=== PATIENT | male | born 1965 | race Caucasian/White ===

== ENCOUNTER 2020-06-01 17:41 | Emergency (ER) | payer OTHER ==
[~2020-06-01] VITALS: Ht 193 cm; Wt 117.9 kg
[2020-06-01] MEDS ORDERED: KETOROLAC TROMETHAMINE 30 MG/ML VIAL IM STA (17:56)
[2020-06-01] MEDS ORDERED: HYDROCODONE/APAP 5MG-325MG TAB PO ONE (18:00)
--- NOTE | 2020-06-01 18:57 | Diagnostic Imaging Report ---
X-ray site and # of views HISTORY: Pelvic pain. COMPARISON: None available. FINDINGS: Bones/joints: No acute fracture or dislocation. There are mild degenerative changes of the bilateral hip joints. The sacroiliac joints are symmetric. No pubic symphyseal widening. Soft tissues: No focal soft tissue abnormality. IMPRESSION: 1. No acute osseous or soft tissue abnormality. 2. Mild degenerative changes of the bilateral hips. Signed by: Jennifer Rizo MD on 06/01/2020 6:54 PM
--- NOTE | 2020-06-01 19:00 | Diagnostic Imaging Report ---
X-ray number spine HISTORY: Lumbosacral spine pain. COMPARISON: None available. FINDINGS: ALIGNMENT: Normal. Vertebral bodies: normal height. Intervertebral disc spaces: there is multilevel degenerative disc disease most pronounced at L5-S1 level. Facet: There is multilevel facet arthrosis most pronounced at the lower lumbar spine. Others: The sacroiliac joints are symmetric. Soft tissues: normal. IMPRESSION: Lumbar spondylosis with multilevel degenerative disease. No acute fracture or dislocation of the lumbosacral spine. Signed by: Jennifer Rizo MD on 06/01/2020 6:57 PM
--- OUTSIDE RECORDS SUMMARY | 2020-06-03 20:23 | XMS REPORT | Summary of Care ---
Author Author [facility] Organization [facility] Address Unknown Phone Unavailable Encounter [facility]([place]UL[place]) [id number] Date(s): 05/15/19 - 05/15/[address] [phone] Discharge Disposition: Home or Self Care Attending Physician: Vinnie Soto MD Referring Physician: Vinnie Soto MD Vital Signs No data available for this section Problem List Condition Effective Dates Status Health Status Informan t Anxiety(Confirmed) Resolved Chronic back Resolved pain(Confirmed) Depression(Confirmed Resolved ) Epilepsy(Confirmed) Resolved Allergies, Adverse Reactions, Alerts No Known Medication Allergies Medications No data available for this section Results No data available for this section Immunizations No data available for this section Procedures Procedure Date Related Diagnosis Body Site Status Ambulatory EEG Completed Gastric bypass Completed MRI of head Completed Social History Social History Type Response Smoking Status Never smoker; Exposure to T obacco Smoke None; Cigarette Smoking Last 365 Days No; Reg Smoking Cessation Counseli ng No entered on: 02/27/19 Assessment and Plan No data available for this section
--- OUTSIDE RECORDS SUMMARY | 2020-06-03 20:23 | XMS REPORT | Continuity of Care Document ---
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 Active 05/11/[address] [facility] R56.9 Active 02/13/[address] [facility] S86.911A - STRAIN OF UNSP MUSC/TEND AT L Active 07/12/2016 [facility] Anxiety (finding) Resolved Problem 05/17/[address] [facility] Chronic back pain (disorder) R esolved Problem [facility] Depressive disorder (disorder) Resolved Problem [facility] Epilepsy (disorder) Resolved Problem 05/17/[address] [facility] Postgastrectomy Malabsorption Active 12/23/2013 [facility] Vitamin D Deficiency Active 12/23/2013 [facility] Hypertension Active 12/23/2013 [facility] Recurrent Nonepileptic Seizures Active 12/23/2013 [facility] Anxiety (Symptom) Active 12/23/2013 [facility] Medications Medication Details Route Status Patient Instructions Ordering Provider Order Date Source Levetiracetam 750 MG Oral Tablet 750 mg = 1 tab, PO, Q12H, # 120 tab, 2 Refill(s), Pharmacy: [facility] #[id number] Active 03/01/[address] [facility] 24 HR topiramate 200 MG Extended Release Oral Capsule [Qudexy] 400 mg = 2 cap, PO, QAM, # 60 cap, 2 Ref ill(s), Pharmacy: [facility] #[id number] Active 03/01/[address] [facility] Topiramate 150mg CAPSULE ER No paresh: atient No Longer Active 03/01/[address] [facility] topiramate 150 mg, Route: PO, Drug form: ERCAP, Bedtime, Dosing Weight 118.182, kg, Start date: 02/28/19 21:00:00 CDT, Duration: 30 day, Stop date: 03/29/19 21:00:00 CDT Inactive 03/01/2019 [facility] nter Keppra Notes: Same as Keppra No Longer Active 02/28/[address] [facility] topiramate 600 mg, Route: PO, Drug form: ERCAP, QAM, Dosing Weight 118.182, kg, Start date: 02/28/19 9:00:00 CDT, Duration: 30 day, Stop date: 03/29/19 9:00:00 CDT No Longer Active 02/28/2019 [facility] Ce [facility]ter Escitalopram Notes: (Same as: Lexapro) No Longer Active 02/28/[address] [facility] topiramate 200mg ER cap topira mate 200mg ER cap, 600 mg, 3 cap, Drug form: MISC, Route: PO, Daily, 02/28/19 9:00:00 CDT, Duration: 30 day, Stop date: 03/29/19 9:00:00 CDT No Longer Active 02/28/2019 [facility] nter Ativan 2 mg, Route: IVP, Drug form: INJ, ONCE, Dosing Weight 118.182, kg, PRN Anxiety, Start date: 02/28/19 4:52:00 CDT Inactive 02/28/[address] [facility] topiramate 150 mg, Route: PO, Drug form: ERCAP, Bedtime, Dosing Weight 118.182, kg, Start date: 02/27/19 21:00:00 CDT, Duration: 30 day, Stop date: 03/28/19 21:00:00 CDT Inactive 02/28/2019 [facility] nter Saline Flush 0.9% Notes: Same as: BD Posiflush Sterile No Longer Active 02/28/[address] [facility] zolpidem 10 mg, Route: PO, Shawn g form: TAB, Bedtime, Dosing Weight 118.182, kg, PRN Sleep, Start date: 02/27/19 10:40:00 CDT, Duration: 30 day, Stop date: 03/29/19 10:39:00 CDT Inactive 02/27/[address] [facility] 24 HR topiramate 150 MG Extended Release Oral Capsule [Qudexy] 150 mg = 1 cap, PO, Bedtime, 0 Refill(s) No Longer Active 02/27/[address] [facility] 24 HR topiramate 200 MG Extended Release Oral Capsule [Qudexy] 600 mg = 3 cap, PO, QAM, 0 Refill(s) No Longer Active 02/27/[address] [facility] Saline Flush 0.9% Notes: Same as: BD Posiflush Sterile No Longer Active 02/27/[address] [facility] topiramate 600 mg, PO, Daily, 0 Refill(s) Inactive 02/27/[address] [facility] Escitalopram 10 mg, PO, Daily, 0 Refill(s) Inactive 02/27/[address] [facility] zolpidem 5 mg, PO, Bedtime, 0 Refill(s) Inactive 02/27/[address] [facility] 24 HR topiramate 150 MG Extended Release Oral Capsule [Qudexy] 150 mg = 1 cap, PO, Daily, 0 Refill(s) Inactive 02/27/2019 [facility] nt 24 HR topiramate 200 MG Extended Release Oral Capsule [Qudexy] 600 mg = 3 cap, PO, Daily, 0 Refill(s) Inactive 02/27/2019 [facility] nt escitalopram 10 mg oral tablet 10 mg = 1 tab, PO, Daily, # 30 tab, 0 Refill(s) Active 02/27/[address] [facility] zolpidem 10 mg oral tablet 10 mg = 1 tab, PO, Bedtime, PRN for sleep, # 14 tab, 0 Refill(s) Active 02/27/2019 [facility] nt Escitalopram Oxalate 10 MG Oral Tablet ; Start Date: ; End Date: (Active) Inactive [facility] Topamax 100 MG Oral Tablet (A ctive) Active [facility] Allergies, Adverse Reactions, Alerts Substance Category Reaction Severity Reaction type Status Date Reported Comments Source No Known Medication Allergies Assertion Drug aller gy [facility] No Known Drug Allergies drug a llergy drug aller gy Active [facility] Immunizations No Data Provided for This Section Results Order Name Results Value Reference Range Date Interpretation Comments Source CHEM PANEL B/C Ratio 12 6 - 25 02/27/[address] [facility] CHEM PANEL AGAP 11.5 10.0 - 20.0 02/27/[address] [facility] CHEM PANEL Globulin 2.7 2.7 - 4.2 02/27/[address] [facility] CHEM PANEL A/G Ratio 1.3 0.7 - 1.6 02/27/[address] [facility] CHEM PANEL eGFR 86 02/27/2019 Result Comment: The eGFR is calculated using the CKD-EPI formula. In most young, healthy individuals the eGFR will be >90 mL/min/1.73m2. The eGFR declines with age. An eGFR of 60-89 may be normal in some populations, particularly the elderly, for whom the CKD-EPI formula has not been extensively validated. Use of the eGFR is not recommended in the following populations:

Individuals with unstable creatinine concentrations, including patients and those with serious co-morbid conditions.

Patients with extremes in muscle mass or diet.

The data above are obtained from the National Kidney Disease Education Program (NKDEP) which additionally recommends that when the eGFR is used in patients with extremes of body mass index for purposes of drug dosing, the eGFR should be multiplied by the estimated BMI. [facility] CHEM PANEL ALT 13 0 - 65 02/27/[address] [facility] CHEM PANEL Total Protein 6.3 6.4 - 8.4 02/27/[address] [facility] CHEM PANEL Albumin Lvl 3.6 3.5 - 5.0 02/27/[address] [facility] CHEM PANEL AST 21 0 - 37 02/27/[address] [facility] CHEM PANEL Calcium Lvl 8.5 8.5 - 10.5 02/27/[address] [facility] CHEM PANEL Alk Phos 96 39 - 136 02/27/[address] [facility] CHEM PANEL Bili Total 0.3 0.2 - 1.3 02/27/[address] [facility] CHEM PANEL BUN 12 7 - 22 02/27/[address] [facility] CHEM PANEL Creatinine Lvl 1.00 0.50 - 1.40 02/27/[address] [facility] CHEM PANEL Potassium Lvl 3.5 3.5 - 5.1 02/27/[address] [facility] CHEM PANEL Sodium Lvl 143 135 - 145 02/27/[address] [facility] CHEM PANEL Chloride Lvl 113 95 - 109 02/27/[address] [facility] CHEM PANEL CO2 22 24 - 32 02/27/[address] [facility] CHEM PANEL Glucose Lvl 122 70 - 99 02/27/[address] [facility] HEMATOLOGY RBC 4.23 4.70 - 6.10 02/27/[address] [facility] HEMATOLOGY Hgb 13.5 14.0 - 18.0 02/27/[address] [facility] HEMATOLOGY Hct 38.5 42.0 - 54.0 02/27/[address] [facility] HEMATOLOGY WBC 3.2 3.7 - 10.4 02/27/[address] [facility] HEMATOLOGY Platelet 172 133 - 450 02/27/[address] [facility] HEMATOLOGY MPV 8.2 7.4 - 10.4 02/27/[address] [facility] HEMATOLOGY MCV 91.0 80.0 - 94.0 02/27/[address] [facility] HEMATOLOGY MCH 32.0 27.0 - 31.0 02/27/[address] [facility] HEMATOLOGY MCHC 35.1 32.0 - 36.0 02/27/[address] [facility] HEMATOLOGY RDW 13.0 11.5 - 14.5 02/27/[address] [facility] HEMATOLOGY Neutrophils # 1.3 1.5 - 8.1 02/27/[address] [facility] HEMATOLOGY Basophils 0.5 0.0 - 1.0 02/27/[address] [facility] HEMATOLOGY Segs 41.8 45.0 - 75.0 02/27/[address] [facility] HEMATOLOGY Eosinophils 1.8 0.0 - 4.0 02/27/[address] [facility] HEMATOLOGY Monocytes 10.4 2.0 - 12.0 02/27/[address] [facility] HEMATOLOGY Lymphocytes 45.5 20.0 - 40.0 02/27/[address] [facility] HEMATOLOGY Eosinophils # 0.1 0.0 - 0.5 02/27/[address] [facility] HEMATOLOGY Monocytes # 0.3 0.0 - 0.8 02/27/[address] [facility] HEMATOLOGY Lymphocytes # 1.5 1.0 - 5.5 02/27/[address] [facility] TOXICOLOGY Topiramate Lvl 15.3 2.0 - 25.0 02/27/2019 Result Comment: This test was developed and its performance characteristics
determined by [employer]. It has not been cleared or
approved by the Food and Drug Administration.
Detection Limit = 1.0
Performed At: [facility]
[address], [place] [id number]
Padilla Mcgrath MD Ph:[phone] [facility] Pathology Reports No Data Provided for This Section Diagnostic Reports Report Value Date Source PET CT Brain refractory seizures EXAM: NM PET CT Head DATE: 05/15/2019 15:05 CDT INDICATION: complex partial epilepsy without status epilepticus, partial symtomatic epilepsy with complex partial seizures, intractable, without status. COMPARISON: Brain MRI 03/01/2019 TECHNIQUE: After intravenous administration of 15.68 mCi of F-18 FDG, 30 minutes delayed PET-noncontrast CT scan of the head was obtained. FINDINGS: There is diffusely heterogenous radiotracer uptake throughout the brain parenchyma. No focal unilateral areas of decreased activity identified suggest seizure focus. Overall decreased uptake in the bilateral anterior temporal lobes and, to a lesser degree, the superior parietal lobes. The CT part of the study shows age-appropriate diffuse cerebral volume loss. No acute intracranial abnormality identified. IMPRESSION: Nonspecific diffuse heterogeneous radiotracer uptake without focal abnormality to suggest seizure focus. 05/15/[address] [facility] Brain wo contrast MRI EXAM: MR I BRAIN WITHOUT CONTRAST DATE: 03/01/2019 12:29 PM CDT INDICATION: - Left Frontal Lobe Epilespy COMPARISON: TECHNIQUE: Multiplanar, mutisequence MRI of the brain without contrast. IV contrast: None FINDINGS: Punctate FLAIR hyperintensities are seen in the deep white matter of the frontal lobes and the left insula, which may represent chronic microvascular ischemic changes. The sulci and the ventricles are normal for the patient's age. No restricted diffusion is present. No intracranial hemorrhage is identified. No parenchymal abnormalities are seen. The midline is not deviated. No evidence of herniations. The intracranial arterial and venous structures demonstrate normal flow voids. The visible paranasal sinuses and skull base are unremarkable. IMPRESSION: Normal MRI of the brain without contrast. 03/01/[address] [facility] Spine lumbar wo contrast MRI E XAM: MRI LUMBAR SPINE WITHOUT CONTRAST DATE: 12/22/2016 9:30 AM [facility] [employer] . TECHNIQUE: Multiplanar, multisequence MRI lumbar spine without IV contrast COMPARISON: Unavailable FINDINGS: For the purposes of enumeration, the lowest well formed intervertebral disc was counted as L5-S1 on this exam. INTRASPINAL CONTENTS/CONUS: The conus terminates at L1-L2. No definite dural based lesion. VERTEBRAE: The vertebrae are normal in height and alignment. No focal suspicious bone marrow signal abnormality. PARASPINAL SOFT TISSUES: No edema or definite masses. No aortic aneurysm. Disc spaces, spinal canal, and neural foramina: T12-L1. Intervertebral disc height and signal are maintained. Posterior elements are normal. There is no stenosis. L1-L2. Intervertebral disc height and signal are maintained. Posterior elements are normal. There is no stenosis. L2-L3. Intervertebral disc height and signal are maintained. Posterior elements are normal. There is no stenosis. L3-L4. Intervertebral disc height and signal are maintained. Posterior elements are normal. There is no stenosis. L4-L5. Intervertebral disc height and signal are maintained. Posterior elements are normal. There is no stenosis. L5-S1. Loss of intervertebral disc height and signal with diffuse disc bulge and central zone annular fissuring. Facets are mildly enlarged.. Central canal measures 11 mm. Lateral recesses are patent. There is moderate severe narrowing of the neural foramina, right greater than left with foraminal disc bulge causing mass effect on exiting nerve roots IMPRESSION: 1. Moderate to severe bilateral L5-S1 ne ural foramen narrowing, right greater than left 2. No lumbar central canal stenosis 12/22/2016 [facility] Lumbar Comp w Bend views DX EXAM: XR LUMBAR SPINE 7 VIEWS DATE: 12/10/2016 at 1311 hours INDICATION: M54.42 Lumbago with sciatica, left side COMPARISON: None available TECHNIQUE: AP, lateral, coned lateral, LPO, RPO, flexion, extension views of the lumbar spine FINDINGS: 5 nonrib bearing, lumbar-type vertebral bodies are present. Vertebral body heights and disk heights are preserved. Bilateral L5 pars defects are present with grade 1 anterolisthesis of L5 on S1, which is unchanged through flexion and extension. There is no abnormal motion upon flexion or extension. Mild lower lumbar spine facet hypertrophy is present. No soft tissue abnormality is identified. IMPRESSION: Bilateral L5 pars defects with fixed, minimal, grade 1 anterolisthesis of L5 on S1. 12/10/2016 [facility] Hip 2/3 views uni DX EXAM: X-r ay right hip 2 views DATE: 07/12/2016 11:31 AM CDT INDICATION: S86.911A Strain of unspecified muscle(s) and tendon(s) at lower leg level, right leg, initial encounter ADDITIONAL INFORMATION: None. COMPARISON: None TECHNIQUE: AP and attempted frog lateral views FINDINGS: Visualized bony and joint structures are intact no evidence of fracture or dislocation. Overlying soft tissues appear unremarkable. IMPRESSION: 1. Unremarkable] right hip. 07/12/2016 [facility] Consultation Notes No Data Provided for This Section Discharge Summaries No Data Provided for This Section History and Physicals No Data Provided for This Section Vital Signs Vital Sign Value Date Comments Source Temperature Oral (F) 97.3 F 03/01/[address] [facility] Respitory Rate 16 03/01/[address] [facility] Systolic (mm Hg) 122 03/01/[address] [facility] Diastolic (mm Hg) 74 03/01/[address] [facility] Heart Rate 60 03/01/[address] [facility] Respitory Rate 18 03/01/[address] [facility] Heart Rate 61 03/01/[address] [facility] Temperature Oral (F) 98.1 F 03/01/[address] [facility] Systolic (mm Hg) 116 03/01/[address] [facility] Diastolic (mm Hg) 65 03/01/[address] [facility] Respitory Rate 17 02/28/[address] [facility] Heart Rate 63 02/28/[address] [facility] Systolic (mm Hg) 137 02/28/[address] [facility] Diastolic (mm Hg) 80 02/28/[address] [facility] Temperature Oral (F) 97.1 F 02/28/[address] [facility] Height 193.04 cm 02/27/[address] [facility] BMI Calculated 31.71 02/27/[address] [facility] Weight 118.182 02/27/[address] [facility] Encounters Location Location Details Encounter Type Encounter Number Reason For Visit Attending Provider ADM Date DC Date Status Source AUDIT [id number] 12/18/2013 12/18/2013 [facility] AUDIT [id number] 12/22/2013 12/22/2013 [facility] AUDIT [id number] 12/23/2013 12/23/2013 [facility] [id number] 00 Corinne Peng 07/12/2016 07/13/2016 [facility] [id number] 01 Corinne Peng 12/10/2016 12/11/2016 [facility] [place] [facility] [id number] Corinne Peng 12/22/2016 [facility]23[facility] [id number] Vinnie Soto 02/27/2019 03/01/2019 [facility] Outpatient [id number] paulette Soto 05/15/2019 05/16/[address] [facility] Procedures Procedure Code Date Perfomer Comments Source Ambulatory EEG [id number] [facility] Gastric bypass [id number] [facility] MRI of head [id number] [facility] Assessment and Plan Assessment and Plan Date Source Extracted from:Title: EMU Author: Laura Escobar MD Date: 02/28/19 EMU Progress Note Had overnight seizures that occurred in clusters. Was given Ativan 2 mg. Slept after. No further seizures so far. Medications: Topamax 600 mg XR given this am Vitals Stable Physical Exam: APPEARANCE - Active, alert, well developed, well nourished. HEAD - dressing NECK - Supple, LUNGS - Clear to auscultation CV - RRR, no murmur, equal pulses bilaterally. ABDOMEN - Soft, nontender, NEURO: II-XII intact, DTRs 2/2, 5/5 strength, Normal station, No ataxia, plantar reflexes downgoing. Assessment: VEEG monitoring Day # 2. 53 y/o with h/o epilepsy admitted for phase 1 evaluation. 4 seizures overnight. Work up left frontal lobe epilepsy. Plan: -Continuous vEEG monitoring - AED regimen to be modified, decrease T PM to 600 mg XR ( 400 / 200 ) and start Keppra 750 mg bid - Plan for d/c in am after MRI, if patie nt has no further seizures. - The VEEG findings and AED management w as discussed with patient and at bedside at length Patient was counseled regarding AED management. EEG Review Interictals: Left frontal ( F3) Ictal: Clinical - Vocalization--> Body and head turn to the right --> Right face clonic sz EEG - Left frontal I spent 40 minutes face time, > 50% of the time was spent in counseling and coordination of care. Extracted from:Title: EMU Admission H&P Author: Aly Jacobs MD Date: 02/27/19 EMU History and Physical Patient Name:HIEU ATKINS Date of Birth1965 00:00 Referrring Physician: Vinnie Soto MD Admitting Physician: Laura Escobar MD Chief Complaint: Phase I Diagnostic Evaluation for seizures HPI: Mr. Hieu Atkins is a 53 year old male with a history of epilepsy, gastric bypass surgery, chronic back pain, depression, and anxiety who presents to for epilepsy evaluation. Mr. Atkins reports that he began having seizures in 2002. He reports that while sitting at his computer, he suddenly blacked out, and woke up on the floor. He is unaware if he had any convulsions, or how long he was unconscious. (This is the only time he went to ER). Since then, he reports that he has been having episodes of blank staring during which he is unable to verbally communicate. He and his also report that he has also been having episodes that involve him stuttering, hyperventilating, and locking his jaw. His denies any convulsions or falls, and reports that these episodes tend to last for about one minute. His recovery time can be anywhere from about 20 minutes to an hour. Semiology 1 Aura: Weird feeling, "feeling something wrong". No motor or sensory feeling prior to seizures. Only a indescribable "feeling" Ictus: Incoherent noise, jaw locks open, hardtime breathing, lasts for about a min. Preserved awareness. Cannot talk, but can walk around and perform meaningful tasks. Post-Ictus: Feels nausea/fatigue/cannot talk for an hour. The post-ictal duration has increased from 20 min to up to an hour now. Frequency: "a few times a week" Triggers: Fatigue, physical exertion Semiology 2 Aura: No aura Ictus: Whole body stiffneing, preserved awareness, unable to verbalize Post-Ictus: Frustrations lasting a few min to up to an hour Frequency: " Once or twice a month" Triggers: None His most recent bigger episode was in October 2018. He has the staring spells which are milder without stiffness or vocalization weekly. He is completely aware of all of his seizure episodes. In regards to previous evaluations, he had a 72 hour at home EEG about one month ago, that was unremarkable. He notes that the day after the conclusion of his study, he had a seizure. He has also had both an EEG and MRI of the brain at the time of his initial diagnosis. Both studies were unremarkable. The only AED that he has tried is Topamax, which he is currently taking. In regards to side effects, he has been experiencing some issues with cognition. Mr. Atkins denies a childhood history of seizures, brain injuries, or meningitis. He also denies a family history of seizures. Last on year, has bene having once a month. He was on to topamax and dilantin for a long time.. Discontinued dilantin 10 years ago. 600mg AM 150 at HS Previous AED: Dilantin -Discontinued 10 years ago. Review of Systems: GEN: Alert and oriented x 3. No fever, chills, night sweats, weight loss, fatigue EYES: no blurred vision, double vision, eye pain ENT: no decreased hearing, nose bleeding, nasal congestion, sore throat CARDIO: no chest pain, palpitation, orthopnea, PND, palpitations, dyspnea on exertion, edema, claudication, phlebitis PULM: no shortness of breath, cough, wheezing, asthma, sputum, hemoptysis GI: no nausea, vomiting, diarrhea, constipation, heartburn, Ab pain, Reflux, BRBPR, Melna : no frequency, dysuria, burning, hematuria, nocturia, hesitancy, erectile dysfunction, NEURO: see HPI, + Memory problems ENDO: no wt loss, wt gain, heat intolerance, cold intolerance, diabetes SKIN: rash, lesion, itching MUSC: joint pain, muscle pain, arthritis, back pain Current AEDS/Meds: topiramate([id number],extendedrelease) 1capBYMOUTHDaily. topiramate([id number],extendedrelease) 3capBYMOUTHDaily. Other Medications: escitalopram([id number]) 1tab(s)BYMOUTHDaily. zolpidem([id number]) 1tab(s)[id number]. PMH: Epilepsy Chronic back pain Depression Anxiety Developmental history: Normal Births, PSH: Gastric bypass FH: No family hx of seizures Social: [employer] No stress at work, home Allergies: NKDA Physical Exam: APPEARANCE - Active, alert, well developed, well nourished. HEAD - Normocephalic and atraumatic EARS - Canals clear. TMs pearly melendez bilaterally EYES - PERRL, fundi benign, aligned NOSE - [place] nasal turbinates, septum is midline. No drainage or deformities. PHARYNX - Mouth pink, mucous membranes moist. No tonsillar enlargement, exudate, or erythema. Teeth-normal for age, good dentition. NECK - Supple, thyroid nonpalpable, full ROM, no significant adenopathy. LUNGS - Clear to auscultation CV - RRR, no murmur, equal pulses bilaterally. ABDOMEN - Soft, nontender, nondistended with normoactive BS. No hepatosplenomegaly, no masses, no hernia. SPINE - Straight, no defects, no scoliosis. EXTREMITIES- Full ROM including neck and spine, normal gait. NEURO: Alert and orient to time, place and person, II-XII intact, DTRs 2/2, Good tone, good strength, Normal station, negative rhomberg, No ataxia, plantar reflexes downgoing. SKIN: Clear, no rashes. Diagnostic Tests: EEG: Routine EEG (12/15/2018): Impression - Normal study. Ambulatory EEG (12/18/2018): Impression - This # day ambulatory EEG was a normal awake and sleep EEG. A normal EEG does no exclude the possibility of seizure disorder. Assessment: Patient is a 53 year old male referred by Dr. Soto for Phase I Diagnostic evaluation in the EMU to better characterize recurrent episodes of seizure-like events. Plan: Phase 1 Epilepsy Evaluation - Admit to Adult EMU - cvEEG monitoring: Goal is to assess fo r interictal abnormalities and capture multiple sz to determin type/localize site of onset. - MRI epilepsy protocol - Continue Home AED's for now - Plan to gradually de-escalate or discontinue - Check routine labs-BMP, CBC, LFT and A ED Levels. - Neuropsych Andres Jacobs MD, MPH Neurology Resident PGY-2 [facility] MSO # [id number] Pager # [phone] Attending Attestation: I have reviewed the note [HP/Progress note] obtained and documented by the resident and I personally participated in the osorio components. I have discussed the case and management of the patient's care. The following comments confirm or revise relevant osorio components the notes. Patient was personally seen and evaluated by me during rounds. Plan : Admit to EMU Continue VEEG monitoring AEDs - Hold TPM Tonight Supportive care per EMU protocol. Plan of care was discussed with patient. All questions answered. 03/01/[address] [facility] Plan of Care Plan of Care Date Source [QLH] CBC (INCLUDES DIFF/PLT) 12/18/2013 Routine[QLH] CMP W/EGFR 12/18/2013 Routine[Q] LIPID PANEL WITH REFLEX TO DIRECT LDL 12/18/2013 Routine[QLH] TSH, 3RD GENERATION W/REFLEX TO FT4 12/18/2013 Routine[QL] VITAMIN B12/FOLATE, SERUM PANEL 12/18/2013 Routine[QLH] VITAMIN D, 1,25 DIHYDROXY LC/MS/MS 12/18/2013 Routine 12/18/2013 [facility] Social History Social History Date Source Social History TypeResponse Smoking Status Never smoker; Exposure to Tobacco Smoke None; Cigarette Smoking Last 365 Days No; Reg Smoking Cessation Counseling No entered on: 02/27/19 02/27/[address] [facility] No data available for this section 12/23/2016 PAYAM Michelle No data available for this section 12/11/2016 PA[facility] Hall Marital History - Currently (Active) 12/23/2013 [facility] Family History Value Date S ource Paternal history of Coronary Artery Dise ase (V17.49); (Active) 12/23/2013 [facility] Paternal history of Coronary Artery Dise ase (V17.49); (Active) 12/22/2013 [facility] Paternal history of Coronary Artery Dise ase (V17.49); (Active) 12/18/2013 [facility] Advance Directives Order Name Results Value Date Source Advance Directives Advance Dir ectives No Advance Directives available. 12/23/2013 [facility] Advance Directives Advance Dir ectives No Advance Directives available. 12/22/2013 [facility] Advance Directives Advance Dir ectives No Advance Directives available. 12/18/2013 [facility] Functional Status No Data Provided for This Section
--- OUTSIDE RECORDS SUMMARY | 2020-06-03 20:23 | XMS REPORT | Summary of Care ---
Author Author [facility] Organization [facility] Address Unknown Phone Unavailable Encounter JC Arroyo(PAULA) [id number] Date(s): 02/27/19 - 03/01/19 [facility] [address] [employer] provided by [facility] [place] [address]- Discharge Disposition: Home or Self Care Attending Physician: Laura Escobar MD Admitting Physician: Vinnie Soto MD Referring Physician: Vinnie Soto MD Vital Signs 1 2 3 Most recent to oldest [Reference Range]: 193.04 cm (02/27/19 8:48 AM) Height 97.3 DegF (03/01/19 7:00 AM) 98.1 DegF (02/28/19 7:50 PM) 97.1 DegF (02/28/19 8:00 AM) Temperature Oral [96.4-99.1 DegF] 122/74 mmHg (03/01/19 7:00 AM) 116/65 mmHg (02/28/19 7:50 PM) 137/80 mmHg (02/28/19 8:00 AM) Blood Pressure [90-140/60-90 mmHg] 16 BRMIN (03/01/19 7:00 AM) 18 BRMIN (02/28/19 7:50 PM) 17 BRMIN (02/28/19 8:00 AM) Respiratory Rate [14-20 BRMIN] 60 bpm (03/01/19 7:00 AM) 61 bpm (02/28/19 7:50 PM) 63 bpm (02/28/19 8:00 AM) Peripheral Pulse Rate [60-100 bpm] 118.182 kg (02/27/19 8:48 AM) Weight 31.71 m2 (02/27/19 8:48 AM) Body Mass Index Problem List Condition Effective Dates Status Health Status Informan t Anxiety(Confirmed) Resolved Chronic back Resolved pain(Confirmed) Depression(Confirmed Resolved ) Epilepsy(Confirmed) Resolved Allergies, Adverse Reactions, Alerts No Known Medication Allergies Medications Ativan 2 mg, Route: IVP, Drug form: INJ, ONCE, Dosing Weight 118.182, kg, PRN Anxiety, Start date: 02/28/19 4:52:00 CDT Start Date: 02/28/19 Stop Date: 02/28/19 Status: Completed escitalopram 10 mg, PO, Daily, 0 Refill(s) Start Date: 02/27/19 Stop Date: 02/27/19 Status: Discontinued escitalopram 10 mg, 1 tab, Route: PO, Drug form: TAB, Daily, Dosing Weight 118.182, kg, Start date: 02/28/19 9:00:00 CDT, Duration: 30 day, Stop date: 03/29/19 9:00:00 CDT Notes: (Same as: Lexapro) Start Date: 02/28/19 Stop Date: 03/01/19 Status: Discontinued escitalopram 10 mg oral tablet 10 mg = 1 tab, PO, Daily, # 30 tab, 0 Refill(s) Start Date: 02/27/19 Status: Ordered Keppra 750 mg, 1 tab, Route: PO, Drug form: TAB, Q12H, Dosing Weight 118.182, kg, Start date: 02/28/19 11:45:00 CDT, Duration: 30 day, Stop date: 03/30/19 9:00:00 CDT Notes: Same as Keppra Start Date: 02/28/19 Stop Date: 03/01/19 Status: Discontinued levETIRAcetam 750 mg oral tablet 750 mg = 1 tab, PO, Q12H, # 120 tab, 2 Refill(s), Pharmacy: [facility]/pharmacy #[id number] Start Date: 03/01/19 Stop Date: 08/28/19 Status: Ordered Qudexy XR 150 mg oral capsule, extended release 150 mg = 1 cap, PO, Daily, 0 Refill(s) Start Date: 02/27/19 Stop Date: 02/27/19 Status: Discontinued Qudexy XR 150 mg oral capsule, extended release 150 mg = 1 cap, PO, Bedtime, 0 Refill(s) Start Date: 02/27/19 Stop Date: 03/01/19 Status: Discontinued Qudexy XR 200 mg oral capsule, extended release 600 mg = 3 cap, PO, Daily, 0 Refill(s) Start Date: 02/27/19 Stop Date: 02/27/19 Status: Discontinued Qudexy XR 200 mg oral capsule, extended release 600 mg = 3 cap, PO, QAM, 0 Refill(s) Start Date: 02/27/19 Stop Date: 03/01/19 Status: Discontinued Qudexy XR 200 mg oral capsule, extended release 400 mg = 2 cap, PO, QAM, # 60 cap, 2 Refill(s), Pharmacy: [facility]/pharmacy #[id number] Start Date: 03/01/19 Stop Date: 05/30/19 Status: Ordered Qudexy XR 200 mg oral capsule, extended release 200 mg = 1 cap, PO, Bedtime, # 30 cap, 2 Refill(s), Pharmacy: [facility]/pharmacy #[id number] Start Date: 03/01/19 Stop Date: 05/30/19 Status: Ordered Saline Flush 0.9% 10 ml, Route: IVP, Drug Form: INJ, Dosing Weight 118.182, kg, Q12H, Start date: 02/27/19 21:00:00 CDT, Duration: 30 day, Stop date: 03/29/19 9:00:00 CDT Notes: Same as: BD Posiflush Sterile Start Date: 02/27/19 Stop Date: 03/01/19 Status: Discontinued Saline Flush 0.9% 10 ml, Route: IVP, Drug Form: INJ, Dosing Weight 118.182, kg, PRN, PRN Line Flus h, Start date: 02/27/19 9:21:00 CDT, Duration: 30 day, Stop date: 03/29/19 9:20: 00 CDT Notes: Same as: BD Posiflush Sterile Start Date: 02/27/19 Stop Date: 03/01/19 Status: Discontinued topiramate 150 mg, Route: PO, Drug form: ERCAP, Bedtime, Dosing Weight 118.182, kg, Start d ate: 02/27/19 21:00:00 CDT, Duration: 30 day, Stop date: 03/28/19 21:00:00 CDT Start Date: 02/27/19 Stop Date: 02/27/19 Status: Canceled topiramate 600 mg, Route: PO, Drug form: ERCAP, QAM, Dosing Weight 118.182, kg, Start date: 02/28/19 9:00:00 CDT, Duration: 30 day, Stop date: 03/29/19 9:00:00 CDT Start Date: 02/28/19 Stop Date: 02/27/19 Status: Deleted topiramate 600 mg, PO, Daily, 0 Refill(s) Start Date: 02/27/19 Stop Date: 02/27/19 Status: Deleted topiramate 150 mg, Route: PO, Drug form: ERCAP, Bedtime, Dosing Weight 118.182, kg, Start d ate: 02/28/19 21:00:00 CDT, Duration: 30 day, Stop date: 03/29/19 21:00:00 CDT Start Date: 02/28/19 Stop Date: 02/28/19 Status: Discontinued topiramate 300 mg, 3 tab, Route: PO, Drug form: TAB, ONCE, Dosing Weight 118.182, kg, Start date: 02/28/19 9:00:00 CDT, Stop date: 02/28/19 9:00:00 CDT Notes: (Same As: Topamax)"Do Not Crush" Start Date: 02/28/19 Stop Date: 02/28/19 Status: Canceled topiramate 600 mg, Route: PO, Daily, Dosing Weight 118.182, kg, Priority: Routine, Start da te: 02/28/19 9:00:00 CDT, Duration: 30 day, Stop date: 03/29/19 9:00:00 CDT Start Date: 02/28/19 Stop Date: 02/28/19 Status: Deleted Topiramate 150mg CAPSULE ER Topiramate 150mg CAPSULE ER, 1 CAPSULE, Drug form: MISC, Route: PO, Bedtime, 21:00:00 CDT, Duration: 30 day, Stop date: 03/29/19 21:00:00 CDT Notes: atient Start Date: 02/28/19 Stop Date: 03/01/19 Status: Discontinued topiramate 200mg ER cap topiramate 200mg ER cap, 600 mg, 3 cap, Drug form: MISC, Route: PO, Daily, 04/27 /19 9:00:00 CDT, Duration: 30 day, Stop date: 03/29/19 9:00:00 CDT Start Date: 02/28/19 Stop Date: 03/01/19 Status: Discontinued topiramate 200mg ER cap topiramate 200mg ER cap, 600 mg, 3 cap, Drug form: MISC, Route: PO, QAM, 9 9:00:00 CDT, Duration: 30 day, Stop date: 03/29/19 9:00:00 CDT Start Date: 02/28/19 Stop Date: 02/27/19 Status: Canceled zolpidem 10 mg, Route: PO, Drug form: TAB, Bedtime, Dosing Weight 118.182, kg, PRN Sleep, Start date: 02/27/19 10:40:00 CDT, Duration: 30 day, Stop date: 03/29/19 10:39: 00 CDT Start Date: 02/27/19 Stop Date: 02/27/19 Status: Deleted zolpidem 5 mg, PO, Bedtime, 0 Refill(s) Start Date: 02/27/19 Stop Date: 02/27/19 Status: Discontinued zolpidem 10 mg oral tablet 10 mg = 1 tab, PO, Bedtime, PRN for sleep, # 14 tab, 0 Refill(s) Start Date: 02/27/19 Stop Date: 03/13/19 Status: Ordered Results Most recent to 1 oldest [Reference Range]: Neutrophils # 1.3 K/CMM [1.5-8.1 K/CMM] *LOW* (02/27/19 1:56 PM) Lymphocytes # 1.5 K/CMM [1.0-5.5 K/CMM] (02/27/19 1:56 PM) Monocytes # [0.0-0.8 0.3 K/CMM K/CMM] (02/27/19 1:56 PM) Eosinophils # 0.1 K/CMM [0.0-0.5 K/CMM] (02/27/19 1:56 PM) Topiramate Lvl 15.3 ug/ml 1 [2.0-25.0 ug/ml] *NA* (02/27/19 1:56 PM) eGFR 86 mL/min/1.73m2 2 *NA* (02/27/19 1:56 PM) A/G Ratio [0.7-1.6] 1.3 (02/27/19 1:56 PM) Albumin Lvl [3.5-5.0 3.6 g/dL g/dL] (02/27/19 1:56 PM) Alk Phos [39-136 96 unit/L unit/L] (02/27/19 1:56 PM) ALT [0-65 unit/L] 13 unit/L (02/27/19 1:56 PM) AGAP [10.0-20.0 11.5 mEq/L mEq/L] (02/27/19 1:56 PM) AST [0-37 unit/L] 21 unit/L (02/27/19 1:56 PM) B/C Ratio [6-25] 12 (02/27/19 1:56 PM) Basophils [0.0-1.0 0.5 % %] (02/27/19 1:56 PM) BUN [7-22 mg/dL] 12 mg/dL (02/27/19 1:56 PM) Calcium Lvl 8.5 mg/dL [8.5-10.5 mg/dL] (02/27/19 1:56 PM) Chloride Lvl [95-109 113 mEq/L mEq/L] *HI* (02/27/19 1:56 PM) CO2 [24-32 mEq/L] 22 mEq/L *LOW* (02/27/19 1:56 PM) Creatinine Lvl 1.00 mg/dL [0.50-1.40 mg/dL] (02/27/19 1:56 PM) Eosinophils [0.0-4.0 1.8 % %] (02/27/19 1:56 PM) Globulin [2.7-4.2 2.7 g/dL g/dL] (02/27/19 1:56 PM) Glucose Lvl [70-99 122 mg/dL mg/dL] *HI* (02/27/19 1:56 PM) Hct [42.0-54.0 %] 38.5 % *LOW* (02/27/19 1:56 PM) Hgb [14.0-18.0 g/dL] 13.5 g/dL *LOW* (02/27/19 1:56 PM) Potassium Lvl 3.5 mEq/L [3.5-5.1 mEq/L] (02/27/19 1:56 PM) Lymphocytes 45.5 % [20.0-40.0 %] *HI* (02/27/19 1:56 PM) MCH [27.0-31.0 pg] 32.0 pg *HI* (02/27/19 1:56 PM) MCHC [32.0-36.0 35.1 g/dL g/dL] (02/27/19 1:56 PM) MCV [80.0-94.0 fL] 91.0 fL (02/27/19 1:56 PM) Monocytes [2.0-12.0 10.4 % %] (02/27/19 1:56 PM) MPV [7.4-10.4 fL] 8.2 fL (02/27/19 1:56 PM) Sodium Lvl [135-145 143 mEq/L mEq/L] (02/27/19 1:56 PM) Platelet [133-450 172 K/CMM K/CMM] (02/27/19 1:56 PM) Segs [45.0-75.0 %] 41.8 % *LOW* (02/27/19 1:56 PM) Total Protein 6.3 g/dL [6.4-8.4 g/dL] *LOW* (02/27/19 1:56 PM) RBC [4.70-6.10 4.23 M/CMM M/CMM] *LOW* (02/27/19 1:56 PM) RDW [11.5-14.5 %] 13.0 % (02/27/19 1:56 PM) Bili Total [0.2-1.3 0.3 mg/dL mg/dL] (02/27/19 1:56 PM) WBC [3.7-10.4 K/CMM] 3.2 K/CMM *LOW* (02/27/19 1:56 PM) 1Result Comment: This test was developed and its performance characteristics determined by [facility]. It has not been cleared or approved by the Food and Drug Administration. Detection Limit = 1.0 Performed At: [facility] [id number] Padilla Mcgrath MD Ph:[phone] 2Result Comment: The eGFR is calculated using the [...] from the National Kidney Disease Education Program ( NKDEP) which additionally recommends that when the eGFR is used in patients with extremes of body mass index for purposes of drug dosing, the eGFR should be mul tiplied by the estimated BMI. Immunizations No data available for this section Procedures Procedure Date Related Diagnosis Body Site Status Ambulatory EEG Completed Gastric bypass Completed MRI of head Completed Social History Social History Type Response Smoking Status Never smoker; Exposure to T obacco Smoke None; Cigarette Smoking Last 365 Days No; Reg Smoking Cessation Counseli ng No entered on: 02/27/19 Assessment and Plan Extracted from: Title: EMU Author: Laura Escobar MD Date: 02/28/19 [...] ABDOMEN - Soft, nontender, NEURO: II-XII intact, DTR s 2/2, 5/5 strength, Normal station, No ataxia, [...] in counseling and coordination of care. Extracted from: Title: EMU Admission H&P Author: Aly Jacobs Date: 02/27/19 EMU History and Physical Patient [...] muscle pain, arthritis, back pain Current AEDS/Meds: topiramate([id number],extendedrelease) 1capBYMOUTHDaily. topiramate([id number],extendedrelease) 3capBYMOUTHDaily. Other Medications: escitalopram(mndbhlbfglqi98uxbfwrhelnzp) 1tab(s)BYMOUTHDaily. zolpidem(tqdrshhb49kofpphesvvsc) 1tab(s)AWSCOIHCdbvpangjomfdipeormohfcddo80Fppu. 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 HEAD - Normocephalic and atraumatic EARS - Canals clear. TMs pearly melendez bilaterally EYES - PERRL, fundi benign, aligned NOSE - [place] nasal turbinates, septum is midline. No drainage [...] to time, place and person, II-XII intact, DTR s 2/2, Good tone, good strength, Normal station, [...] now - Plan to gradually de-escalate or disco ntinue - Check routine labs-BMP, CBC, LFT and A ED Levels. - Neuropsych Andres Jacobs MD, MPH Neurology Resident PGY-2 [facility] MSO # [phone] Pager # [phone] Attending Attestation: I have reviewed the note [...]
--- OUTSIDE RECORDS SUMMARY | 2020-06-03 20:23 | XMS REPORT | Summary of Care ---
Author Author [facility] Organization [facility] Address Unknown Phone Unavailable Encounter HQ Encntr_alias(FIN) [id number] Date(s): 07/12/16 - 07/12/16 [facility] Outpatient Imaging - [address], [address] [place] [phone] Discharge Disposition: Home or Self Care Attending Physician: Corinne Peng DO Vital Signs No data available for this section Problem List No data available for this section Allergies, Adverse Reactions, Alerts No data available for this section Medications No data available for this section Results No data available for this section Immunizations No data available for this section Procedures No data available for this section Social History No data available for this section Assessment and Plan No data available for this section
--- OUTSIDE RECORDS SUMMARY | 2020-06-03 20:24 | XMS REPORT | Summary of Care ---
Author Author SCOUT Aldana, HIEU BROKC Organization Unknown Address [facility] Phone Unavailable Care Team Providers Care Flat Sorter Processor Name Role Phone SCOUT Aldana, HEATHER Unavailable Unavailable SANDRO BAXTER Unavailable Unavailable SAMMY PHILLIPS APRN Unavailable Unavailable TAHIR CLARKE AK, JASPER HOLDER Unavailable Unavailable JASPER HARO M.D. 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, 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 Prostate cancer screening (V76.44, Z12.5 ) Status: Active Arthritis (716.90, M19.90) Status: Active Vitamin D deficiency disease (268.9, E55 .9) Status: Active Acute sinusitis (461.9, J01.90) Status: Active Muscle strain of right lower extremity ( 844.9, S86.911A) Status: Active Common cold (460, J00) Status: Active Acute bilateral low back pain with left- sided sciatica (724.2, M54.42) Status: Active Back pain (724.5, M54.9) Status: Active Gastroenteritis (558.9, K52.9) Status: Active BMI 31.0-31.9,adult (V85.31, Z68.31) Status: Active Leukopenia (288.50, D72.819) Status: Active Need for Tdap vaccination (V06.1, Z23) Status: Active Upper respiratory infection, acute (465. 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 * Quantity: 30 Refills: 5 SCOUT M.DEdmund, OMOTOCRISTINA Active levETIRAcetam ER 750 MG Oral Tablet Extended Release 24 Hour TAKE 2 TABLET DAILY * Quantity: 60 Refills: 11 SCOUT Browne.Mayra, OMOTOLA Active predniSONE 10 MG Oral Tablet 1 tab po tid x 3 days, 1 tab po bid x 3days, then 1 po qd x 3 days. * Quantity: 18 Refills: 0 DIONICIO P.A., SANDRO * Start : 07-Sep-2019 Active Allergies and Adverse Reactions Name Dates Details No Known Drug Allergies (Allergy) Status : Active Past Medical History Name Dates Details History of Anxiety (300.00, F41.9) Status: Resolved History of chronic back pain (V13.59, Z8 7.39) Status: Resolved History of essential hypertension (V12.5 9, Z86.79) Status: Resolved History of pharyngitis (V12.69, Z87.09) Status: Resolved History of Right handed Status: Resolved Procedures Procedure Dates Details History of Gastric Bypass With Luke-en-Y Short Limb Completed History of Oral Surgery Completed Immunization Name Dates Details Fluzone INJ Comments: Approx 12Aug2014 Influenza on: 14-May-2015 Fluzone Quadrivalent 0.5 ML Intramuscula r Suspension Prefilled Syringe Lot #: [id number] on: 12-Aug-2017 Influenza, seasonal, injectable on: 04-Sep-2018 Tdap (Boostrix) Lot #: [id number] on: 10-Nov-2018 Fluzone Quadrivalent 0.5 ML Intramuscula r Suspension Lot #: [id number] on: 07-Sep-2019 Family History Name Dates Details Family history of arthritis (V17.7, Z82. 61) Status: Active Family history of hypertension (V17.49, Z82.49) Status: Active Name Dates Details Family history of Coronary Artery Diseas e (V17.49) Status: Active Family history of Hemorrhagic stroke (43 1, I61.9) Status: Active Family history of neuropathy (V17.2, Z82 .0) Status: Active Name Dates Details Family history of hypertension (V17.49, Z82.49) Status: Active Social History Name Dates Details - Status: Name Dates Details Never smoked tobacco (finding) Never smoked tobacco (finding) Vital Signs Date Test Result Details [id number]-Mie-99140:[id number] Systolic blood pressure 134 mm[Hg] Status: Diastolic blood pressure 82 mm[Hg] Status: Body height 76 in Status: Weight 262 lb Status: Body mass index (BMI) [Ratio] 31.89 kg/m2 Status: Body surface area Derived from formula 2.48 m2 S tatus: Heart Rate 89 /min Status: Results Date Description Value Details Results not documented Plan of Care Name Dates Details Planned Observations Planned Goals not documented Planned Encounters Appointment; HEATHER BUTTERFIELD M.D. On: 30-Aug-2020 9:30 Interventions Provided Medication Changes* levETIRAcetam ER 750 MG Oral Tablet Extended Release 24 Hour - Renew * Zolpidem Tartrate 10 MG Oral Tablet - Renew Plan* Additional Plan:. * 1. Refill current medications * 2. RTC in 8 months. Instructions Name Dates Details Instructions not documented Encounters Appointment; SAMMY PHILLIPS APRN Encounter Diagnosis: Problem not documented On: 02-Apr-2018 14:15 Appointment; SAMMY PHILLIPS APRN Encounter Diagnosis: Problem not documented On: 10-Nov-2018 7:30 Appointment; SAMMY PHILLIPS APRN Encounter Diagnosis: Problem not documented On: 20-Jan-2019 12:30 Appointment; HEATHER BUTTERFIELD M.D. Encounter Diagnosis: Problem not documented On: 10-Feb-2019 8:30 Appointment; HEATHER BUTTERFIELD M.D. Encounter Diagnosis: Problem not documented On: 17-Mar-2019 13:30 Appointment; HEATHER BUTTERFIELD M.D. Encounter Diagnosis: Problem not documented On: 19-May-2019 15:30 Appointment; HEATHER BUTTERFIELD M.D. Encounter Diagnosis: Problem not documented On: 16-Jun-2019 13:30 Appointment; SAMMY PHILLIPS APRN Encounter Diagnosis: Problem not documented On: 13-Jul-2019 8:00 Appointment; MIRANDA WHITE, PHD Encounter Diagnosis: Problem not documented On: 17-Aug-2019 9:30 Appointment; HEATHER BUTTERFIELD M.D. Encounter Diagnosis: Problem not documented On: 18-Aug-2019 15:00 Appointment; SANDRO GREENBERG P.A. Encounter Diagnosis: Problem not documented On: 07-Sep-2019 8:00 Appointment; HEATHER BUTTERFIELD M.D. Encounter Diagnosis: Problem not documented On: 30-Dec-2019 9:30
--- OUTSIDE RECORDS SUMMARY | 2020-06-03 20:24 | XMS REPORT ---
Author Author HIEU Yun Organization Unknown Address Unknown Phone Care Team Providers Care Bottle Labeler Name Role Phone Padma Yun PP Unavailable Reason for Referral No Reason for Referral was given. History of Present Illness No HPI available. 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); (Active) * Vitamin D Deficiency (268.9); (Active) * Hypertension (401.9); (Active) * Recurrent Nonepileptic Seizures (780.39); (Active) * Anxiety (Symptom) (300.00); (Active) Medication * Escitalopram Oxalate 10 MG Oral Tablet; TAKE 1 TABLET DAILY.; Start Date: ; End Date: (Active) * Topamax 100 MG Oral Tablet; 2 tabs am 3 tabs pm (Active) Allergies and Adverse Reactions * No Known Drug Allergies (Active) Past Medical History * History of Hypertension (401.9); (Resolved) * History of Pharyngitis (462); (Resolved) * History of Upper Respiratory Infection (465.9); (Resolved) * History of Anxiety (Symptom) (300.00); (Resolved) Family History * Paternal history of Coronary Artery Disease (V17.49); (Active) Social History * Marital History - Currently (Active) Advance Directives * No Advance Directives available. Encounters * AUDIT 12/23/2013
--- OUTSIDE RECORDS SUMMARY | 2020-06-03 20:24 | XMS REPORT ---
Author Author HIEU GREENBERG SANDRO Organization Unknown Address Unknown Phone Care Team Providers Care Director Software Development Name Role Phone SANDRO GREENBERG PP Unavailable Reason for Referral No Reason [...] No Advance Directives available. Encounters * AUDIT 12/22/2013
--- OUTSIDE RECORDS SUMMARY | 2020-06-03 20:24 | XMS REPORT | Summary of Care ---
Author Author [facility] Outpatient Imaging - [facility] Organization [facility] Outpatient [facility] - [facility] Address Unknown Phone Unavailable Encounter HQ Encntr_alias(FIN) [id number] Date(s): 12/22/16 - 12/22/16 [facility] [place] [address] [phone] Discharge Disposition: Home or Self Care Attending [...]
--- OUTSIDE RECORDS SUMMARY | 2020-06-03 20:24 | XMS REPORT | Summary of Care ---
Author Author [facility] Outpatient Imaging - [facility] Organization [facility] Outpatient Imaging - [facility] Address Unknown Phone Unavailable Encounter HQ Encntr_alias(FIN) [id number] Date(s): 12/10/16 - 12/10/16 [facility] Outpatient Imaging - [place] [address] [facility], [address] [place] [phone] Discharge Disposition: Home or Self Care Attending [...]
--- OUTSIDE RECORDS SUMMARY | 2020-06-03 20:24 | XMS REPORT | Summary of Care ---
Author Author Bryon Barrera, HIEU BROCK Organization Unknown Address [facility] Phone Unavailable Care Team Providers Care Poultry Grader Name Role Phone SCOUT Aldana, HEATHER Unavailable Unavailable DIONICIO Orozco, SANDRO Unavailable Unavailable JACQUELINE Ellis, SAMMY Unavailable Unavailable TAHIR CLARKE [place], JASPER HOLDER Unavailable Unavailable TAHIR Aldana, JASPER Dorsey Unavailable DIRK CLARKE, NAFISA Manning Unavailable Unavailable SATURDAY , JUSTIN MARTIN Unavailable Unavailab jesús BUTTERFIELD MD [place], HEATHER Amaya Unavailable Unavailable Unavailable Unavailable Functional [...] Colon cancer screening (V76.51, Z12.11) Status: Active 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 * Refills: 0 Active levETIRAcetam ER 750 MG Oral Tablet Extended Release 24 Hour TAKE 2 TABLET DAILY * Quantity: 180 Refills: 2 SCOUT Browne.Mayra, OMOTOLA Active LORazepam 1 MG Oral Tablet TAKE 1 TABLET Daily PRN seizure cluster * Quantity: 5 Refills: 1 SCOUT Browne.Mayra, OMOTOLA * Start : 17-Mar-2019 Active OXcarbazepine 600 MG Oral Tablet TAKE 1 AND 1/2 TABLETS BY MOUTH TWICE DAILY DIRECTED. * Quantity: 270 Refills: 3 HOPE M.D., OMOTOLA * Start : 18-Aug-2019 Active predniSONE 10 MG Oral Tablet 1 [...] handed Status: Resolved Procedures Procedure Dates Details [QLH] TSH, 3RD GENERATION W/REFLEX TO FT4 Date: 13-Jul-2019 [QLH] CMP W/EGFR Date: 13-Jul-2019 [QLH] CBC (INCLUDES DIFF/PLT) Date: 13-Jul-2019 [Q] LIPID PANEL WITH REFLEX TO DIRECT LDL Date: 13-Jul-2019 History of Gastric Bypass With Luke-en-Y Short Limb Completed History of Oral Surgery Completed Immunization Name Dates Details Fluzone INJ Comments: Approx 12Aug2014 Influenza on: 14-May-2015 Fluzone Quadrivalent 0.5 ML Intramuscula r Suspension Prefilled Syringe Lot #: [id number] on: 12-Aug-2017 Influenza, seasonal, injectable on: 04-Sep-2018 Tdap (Boostrix) Lot #: [id number] on: 10-Nov-2018 Fluzone Quadrivalent 0.5 ML Intramuscula r Suspension Lot #: [id number] on: 07-Sep-2019 Family History Name Dates Details [...] Details - Status: Name Dates Details Never smoker Never smoker Vital Signs Date Test Result Details 07-Sep-20197:57 BP Systolic 118 mm[Hg] Status: Comments: Lo cation: LUE; Position: Sitting BP Diastolic 74 mm[Hg] Status: Comments: Lo cation: LUE; Position: Sitting Height 75 in Status: Weight 262.5 lb Status: Body Mass Index Calculated 32.81 kg/m2 Status: Body Surface Area Calculated 2.46 m2 Status: Temperature 97.4 f Status: Comments: Me thod: Temporal Respiration Rate 16 /min Status: Physical Findings 5 Status: Comments: Pa in Scale Heart Rate 72 /min Status: 65-Cty-33428:52 Physical Findings 2 Status: Comments: PH Q-9 Adult Depression Screening 63-Nzf-12479:51 BP Systolic 136 mm[Hg] Status: BP Diastolic 80 mm[Hg] Status: Height 75 in Status: Weight 261.4375 lb Status: Body Mass Index Calculated 32.68 kg/m2 Status: Body Surface Area Calculated 2.46 m2 Status: Heart Rate 87 /min Status: Results Date Description Value Details Results not documented Plan of Care Name Dates Details Planned Observations Planned Goals not documented Planned Encounters Appointment; HEATHER BUTTERFIELD M.D. On: 30-Dec-2019 9:30 Interventions Provided Medication Changes* predniSONE 10 MG Oral Tablet - Start Medications/Immunizations Administered* Fluzone Quadrivalent 0.5 ML Intramuscular Suspension; Done: 07 Sep 2019 Plan* consider orhto referral. Instructions Name Dates Details Instructions not documented Encounters Appointment; SAMMY PHILLIPS NP Encounter Diagnosis: Problem not documented On: 02-Apr-2018 14:15 Appointment; SAMMY PHILLIPS NP Encounter Diagnosis: Problem not documented On: 10-Nov-2018 7:30 Appointment; SAMMY PHILLIPS NP Encounter Diagnosis: Problem not documented On: 20-Jan-2019 12:30 Appointment; HEATHER BUTTERFIELD M.D. Encounter Diagnosis: Problem not documented On: 10-Feb-2019 8:30 Appointment; HEATHER BUTTERFIELD M.D. Encounter Diagnosis: Problem not documented On: 17-Mar-2019 13:30 Appointment; HEATHER BUTTERFIELD M.D. Encounter Diagnosis: Problem not documented On: 19-May-2019 15:30 Appointment; HEATHER BUTTERFIELD M.D. Encounter Diagnosis: Problem not documented On: 16-Jun-2019 13:30 Appointment; SAMMY PHILLIPS NP Encounter Diagnosis: Problem not documented On: 13-Jul-2019 8:00 Appointment; MIRANDA WHITE, PHD Encounter Diagnosis: Problem not documented On: 17-Aug-2019 9:30 Appointment; HEATHER BUTTERFIELD M.D. Encounter Diagnosis: Problem not documented On: 18-Aug-2019 15:00 Appointment; SANDRO GREENBERG P.A. Encounter Diagnosis: Problem not documented On: 07-Sep-2019 8:00
--- OUTSIDE RECORDS SUMMARY | 2020-06-03 20:24 | XMS REPORT | Summary of Care ---
Author Author [facility] Address [address] [place] [address] Phone Unavailable Care Team Providers Care Dietetic Technician Registered Name Role Phone SCOUT Aldana, HEATHER Unavailable Unavailable DIONICIO P.A., SANDRO Unavailable Unavailable SAMMY PHILLIPS APRN Unavailable Unavailable TAHIR CLARKE [place], JASPER HOLDER Unavailable Unavailable SAMMY [place] Unavailable Unavailable TAHIR Aldana, JASPER Dorsey Unavailable DIRK CLARKE, NAFISA Manning Unavailable Unavailable SATURDAY , JUSTIN MARTIN Unavailable Unavailab jesús BUTTERFIELD MD [place], HEATHER Amaya Unavailable Unavailable Unavailable Unavailable Functional Status Name Dates Details Functional status health issues are not documented Status: Name Dates Details Cognitive status health issues are not d ocumented Status: Problems Name Dates Details 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 9, J06.9) Status: Active 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, intractable, without status epilepticus (345.41, G40.219) Status: Active Insomnia, unspecified type (780.52, G47. 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) Status: Active Convulsion (780.39, R56.9) Status: Active BMI 31.0-31.9,adult (V85.31, Z68.31) Status: Active Common cold (460, J00) Status: Active Acute sinusitis (461.9, J01.90) Status: Active Flu vaccine need (V04.81, Z23) Status: Active Travelers' diarrhea (009.2, A09) Status: Active Recurrent Nonepileptic Seizures (780.39) Status: Active Metabolic encephalopathy (348.31, G93.41 ) Status: Active Colon cancer screening (V76.51, Z12.11) Status: Active Anxiety (300.00, F41.9) Status: Active Late onset dysthymia (300.4, F34.1) Status: Active Essential (primary) hypertension (401.9, I10) Status: Active Elevated liver enzymes (790.5, R74.8) Status: Active Right elbow tendinitis (727.09, M77.8) Status: Active BMI 32.0-32.9,adult (V85.32, Z68.32) Status: Active Back pain (724.5, M54.9) Status: Active Medications Name Dates Details Escitalopram Oxalate 10 MG Oral Tablet TAKE 1 TABLET DAILY. DUE FOR OFFICE VISIT. PLEASE SCHEDULE APPT FOR OFFICE VISIT FOR ADDL REFILLS Quantity: 30 SAMMY PHILLIPS APRN * Start : 09-Jul-2014 Active Qudexy XR 200 MG Oral Capsule ER 24 Hour Sprinkle TAKE 2 TABLETS DAILY * Refills: 0 Active levETIRAcetam ER 750 MG Oral Tablet Extended Release 24 Hour TAKE 2 TABLET DAILY * Quantity: 60 Refills: 11 HEATHER BUTTERFIELD M.D. Active predniSONE 10 MG Oral Tablet 1 tab po tid x 3 days, 1 tab po bid x 3days, then 1 po qd x 3 days. * Quantity: 18 Refills: 0 DIONICIO P.A., SANDRO * Start : 07-Sep-2019 Active Zolpidem Tartrate 10 MG Oral Tablet TAKE 1 TABLET AT BEDTIME NEEDED FOR INSOMNIA. * Quantity: 30 Refills: 5 SCOUT M.DEdmund, OMOTOLA Active Allergies and Adverse Reactions Name Dates [...] Intramuscula r Suspension Prefilled Syringe Lot #: [id number] on: 12-Aug-2017 Influenza, seasonal, injectable on: 04-Sep-2018 Tdap (Boostrix) Lot #: [id number] on: 10-Nov-2018 Fluzone Quadrivalent 0.5 ML Intramuscula r Suspension Lot #: [id number] on: 07-Sep-2019 Family History Name Dates Details [...] (finding) Vital Signs Date Test Result Details No Known Vitals to report Results Date Description Value Details Results not documented Plan of Care Name Dates Details Planned Observations Planned Goals not documented Planned Encounters Appointment; SANDRO GREENBERG P.A. On: 17-Mar-2020 9:00 Appointment; HEATHER BUTTERFIELD M.D. On: 30-Aug-2020 9:30 Instructions Name Dates Details Instructions not documented [...]
--- OUTSIDE RECORDS SUMMARY | 2020-06-03 20:24 | XMS REPORT | Summary of Care ---
Author Author SCOUT Aldana, HIEU BROCK Organization Unknown Address [facility] Phone Unavailable Care Team Providers Care Casing Finisher And Stuffer Name Role Phone SCOUT Aldana, HEATHER Unavailable Unavailable SANDRO BAXTER Unavailable Unavailable SAMMY PHILLIPS APRN Unavailable Unavailable TAHIR CLARKE [place], JASPER HOLDER Unavailable Unavailable JASPER HARO M.D. Unavailable Unavailable DIRK CLARKE, NAFISA Manning Unavailable Unavailable SATURDAY , JUSTIN MARTIN Unavailable Unavailab jesús BUTTERFIELD MD [place], HEATHER Amaya Unavailable Unavailable Unavailable Unavailable Functional [...] unspecified type (780.52, G47. 00) Status: Active Medications Name Dates Details Escitalopram [...] DAILY * Quantity: 60 Refills: 11 SCOUT Aldana, OMOTOLA Active predniSONE 10 MG Oral Tablet [...] Intramuscula r Suspension Prefilled Syringe Lot #: [id number] on: 12-Aug-2017 Influenza, seasonal, injectable on: 04-Sep-2018 Tdap (Boostrix) Lot #: [id number] on: 10-Nov-2018 Fluzone Quadrivalent 0.5 ML Intramuscula r Suspension Lot #: [id number] on: 07-Sep-2019 Family History Name Dates Details [...] (finding) Vital Signs Date Test Result Details [id number] Systolic blood pressure 134 mm[Hg] Status: Diastolic [...]
--- OUTSIDE RECORDS SUMMARY | 2020-06-03 20:24 | XMS REPORT | Summary of Care ---
Author Author Bryon Barrera, HIEU BROCK Organization Unknown Address [facility] Phone Unavailable Care Team Providers Care Core Stacker Name Role Phone SCOUT Aladna, HEATHER Unavailable Unavailable SANDRO BAXTER Unavailable Unavailable SAMMY PHILLIPS APRN Unavailable Unavailable TAHIR CLARKE [place], JASPER HOLDER Unavailable Unavailable SAMMY [place] Unavailable Unavailable TAHIR Aldana, JASPER Dorsey Unavailable DIRK CLARKE, NAFISA Manning Unavailable Unavailable SATURDAY , JUSTIN MARTIN Unavailable Unavailab jesús BUTTERFIELD MD [place], HEATHER Amaya Unavailable Unavailable Unavailable Unavailable Functional [...] INSOMNIA. * Quantity: 30 Refills: 5 SCOUT Aldana, OMOTOLA Active levETIRAcetam ER 750 MG Oral Tablet Extended Release 24 Hour TAKE 2 TABLET DAILY * Quantity: 60 Refills: 11 SCOUT Browne.Mayra, OMOTOLA Active Allergies and Adverse Reactions Name [...] Intramuscula r Suspension Prefilled Syringe Lot #: [id number] on: 12-Aug-2017 Influenza, seasonal, injectable on: 04-Sep-2018 Tdap (Boostrix) Lot #: [id number] on: 10-Nov-2018 Fluzone Quadrivalent 0.5 ML Intramuscula r Suspension Lot #: [id number] on: 07-Sep-2019 Family History Name Dates Details [...] Name Dates Details Never smoked tobacco (finding) Vital Signs Date Test Result Details 28-Qaa-26754:58 Physical Findings 0 Status: Comments: Al janie Screen - How many times in the past yr have you had 5 (for M) or 4 (for F) or 4 (for all > 65yrs) or more drinks in a day? Results Date Description Value Details Results not documented Plan of Care Name Dates Details Planned Observations Planned Goals not documented Planned Encounters Appointment; HEATHER BUTTERFIELD M.D. On: 30-Aug-2020 9:30 Interventions Provided Labs/Procedures/Imaging* Tobacco Use Screening; Done: 17 Mar 2020 Instructions Name Dates Details Instructions not documented [...] Diagnosis: Problem not documented On: 30-Dec-2019 9:30 Appointment; SANDRO GREENBERG PSanty Encounter Diagnosis: Problem not documented On: 17-Mar-2020 9:00
--- OUTSIDE RECORDS SUMMARY | 2020-06-03 20:24 | XMS REPORT | Summary of Care ---
Author Author [facility] Address [address] [place] [address] Phone Unavailable Care Team Providers Care Office Agent Name Role Phone SCOUT Aldana, HEATHER Unavailable Unavailable SAMMY PHILLIPS APRN Unavailable Unavailable TAHIR CLARKE [place], JASPER HOLDER Unavailable Unavailable SAMMY [place] Unavailable Unavailable TAHIR Aldana, JASPER Unavailable Unavailable DIRK CLARKE, NAFISA Manning Unavailable Unavailable SATURDAY , JUSTIN MARTIN Unavailable Unavailab jesús BUTTERFIELD MD [place], HEATHER Amaya Unavailable Unavailable Unavailable Unavailable Functional [...] INSOMNIA. * Quantity: 30 Refills: 5 SCOUT M.D., OMOTOLA Active levETIRAcetam ER 750 MG Oral Tablet Extended Release 24 Hour TAKE 2 TABLET DAILY * Quantity: 60 Refills: 11 HOPE M.D., OMOTOLA Active Allergies and Adverse Reactions Name [...] Name Dates Details Fluzone INJ Comments: Approx [id number] Influenza on: 14-May-2015 Fluzone Quadrivalent 0.5 ML Intramuscula r Suspension Prefilled Syringe Lot #: [id number] on: 12-Aug-2017 Influenza, seasonal, injectable on: 04-Sep-2018 Tdap (Boostrix) Lot #: [id number] on: 10-Nov-2018 Fluzone Quadrivalent 0.5 ML Intramuscula r Suspension Lot #: [id number] on: 07-Sep-2019 Family History Name Dates Details [...] (finding) Vital Signs Date Test Result Details [id number] Physical Findings 0 Status: Comments: Al cohol Screen - How many times in the [...] not documented On: 10-Nov-2018 7:30 Appointment; SAMMY PHILLISP APRN Encounter Diagnosis: Problem not documented On: [...] documented On: 18-Aug-2019 15:00 Appointment; SANDRO GREENBERG PSanty Encounter Diagnosis: Problem not documented On: 07-Sep-2019 8:00 Appointment; HEATHER BUTTERFIELD M.D. Encounter Diagnosis: Problem not documented On: 30-Dec-2019 9:30 Appointment; SANDRO GREENBERG PEdmundAEdmund Encounter Diagnosis: Problem not documented On: 17-Mar-2020 9:00
--- OUTSIDE RECORDS SUMMARY | 2020-06-03 20:24 | XMS REPORT | Summary of Care ---
Author Author [facility] Address [address] [place] [address] Phone Unavailable Care Team Providers Care Band Singer Name Role Phone SCOUT Aldana, HEATHRE Unavailable Unavailable DIONICIO P.AEdmund, SANDRO Unavailable Unavailable SAMMY PHILLIPS APRN Unavailable Unavailable TAHIR CLARKE [place], JASPER HOLDER Unavailable Unavailable TAHIR Aldana, JASPER Dorsey Unavailable DIRK CLARKE, NAFISA Manning Unavailable Unavailable SATURDAY , JUSTIN MARTIN Unavailable Unavailab jesús BUTTERFIELD MD [place], HEATHER Amaya Unavailable Unavailable Unavailable Unavailable Functional [...] Hour TAKE 2 TABLET DAILY * Quantity: 120 Refills: 0 SCOUT M.DEdmund, OMOTOLA Active LORazepam 1 MG Oral Tablet TAKE 1 TABLET Daily PRN seizure cluster * Quantity: 5 Refills: 1 SCOUT Browne.Deyanira., OMOTOLA * Start : 17-Mar-2019 Active OXcarbazepine [...] Intramuscula r Suspension Prefilled Syringe Lot #: [id number] on: 12-Aug-2017 Influenza, seasonal, injectable on: 04-Sep-2018 Tdap (Boostrix) Lot #: [id number] on: 10-Nov-2018 Fluzone Quadrivalent 0.5 ML Intramuscula r Suspension Lot #: [id number] on: 07-Sep-2019 Family History Name Dates Details [...] Details Planned Observations Planned Goals not documented Instructions Name Dates Details Instructions not documented [...]
--- OUTSIDE RECORDS SUMMARY | 2020-06-03 20:24 | XMS REPORT | Summary of Care ---
Author Author Bryon Barrera, HIEU BROCK Organization Unknown Address [facility] Phone Unavailable Care Team Providers Care Powder And Primer Canning Leader Name Role Phone SCOUT Aldana, HEATHER Unavailable Unavailable SANDRO BAXTER Unavailable Unavailable SAMMY PHILLIPS APRN Unavailable Unavailable TAHIR CLARKE [place], JASPER HOLDER Unavailable Unavailable SAMMY [place] Unavailable Unavailable TAHIR Aldana, JASPER Dorsey Unavailable DIRK CLARKE, NAFISA Manning Unavailable Unavailable SATURDAY , JUSTIN MARTIN Unavailable Unavailab jesús BUTTERFIELD MD [place], HEATHER Amaya Unavailable Unavailable Unavailable Unavailable Functional [...] DAILY * Quantity: 60 Refills: 11 SCOUT Borwne.Mayra, OMOTOLA Active Allergies and Adverse Reactions Name [...] Intramuscula r Suspension Prefilled Syringe Lot #: [id number] on: 12-Aug-2017 Influenza, seasonal, injectable on: 04-Sep-2018 Tdap (Boostrix) Lot #: [id number] on: 10-Nov-2018 Fluzone Quadrivalent 0.5 ML Intramuscula r Suspension Lot #: [id number] on: 07-Sep-2019 Family History Name Dates Details [...] (finding) Vital Signs Date Test Result Details [id number]-[id number]:21 Physical Findings 1 Status: Comments: PH Q-9 Adult Depression Screening 00-Zxx-[id number] Physical Findings 0 Status: Comments: Al georgieol Screen - How many times in the [...] documented On: 30-Dec-2019 9:30 Appointment; SANDRO GREENBERG P.A. Encounter Diagnosis: Problem not documented On: 17-Mar-2020 9:00
--- OUTSIDE RECORDS SUMMARY | 2020-06-03 20:24 | XMS REPORT | Summary of Care ---
Author Author [facility] Address [address] [place] [address] Phone Unavailable Care Team Providers Care Upholstery Trimmer Name Role Phone SCOUT Aldana, HEATHER Unavailable Unavailable DIONICIO P.AEdmund, SANDRO Unavailable Unavailable SAMMY PHILLIPS APRN Unavailable Unavailable TAHIR CLARKE [place], JASPER HOLDER Unavailable Unavailable TAHIR Aldana, JASPER Dorsey Unavailable DIRK CLARKE, NAFISA Manning Unavailable Unavailable SATURDAY , JUSTIN MARTIN Unavailable Unavailab jesús BUTTERFIELD MD [place], HEATHER Amaya Unavailable Unavailable Unavailable Unavailable Functional [...] M77.8) Status: Active Medications Name Dates Details predniSONE 10 MG Oral Tablet 1 tab po tid x 3 days, 1 tab po bid x 3d ays, then 1 po qd x 3 days. Quantity: 18 DIONICIO P.A., SANDRO * Start : 07-Sep-2019 Active LORazepam 1 MG Oral Tablet TAKE 1 TABLET Daily PRN seizure cluster * Quantity: 5 Refills: 1 HEATHER BUTTERFIELD M.D. * Start : 17-Mar-2019 Active levETIRAcetam ER 750 MG Oral Tablet Extended Release 24 Hour TAKE 2 TABLET DAILY * Quantity: 120 Refills: 0 HEATHER BUTTERFIELD M.D. Active Qudexy XR 200 MG Oral Capsule ER 24 Hour Sprinkle TAKE 2 TABLETS DAILY * Refills: 0 Active OXcarbazepine 600 MG Oral Tablet TAKE 1 AND 1/2 TABLETS BY MOUTH TWICE DAILY DIRECTED. * Quantity: 270 Refills: 3 HEATHER BUTTERFIELD M.D. * Start : 18-Aug-2019 Active Zolpidem Tartrate 10 MG Oral Tablet TAKE 1 TABLET AT BEDTIME NEEDED FOR INSOMNIA. * Refills: 0 Active Escitalopram Oxalate 10 MG Oral Tablet TAKE 1 TABLET BY MOUTH DAILY * Quantity: 90 Refills: 1 SAMMY PHILLIPS APRN * Start : 09-Jul-2014 Active Allergies and Adverse Reactions Name Dates [...] Intramuscula r Suspension Prefilled Syringe Lot #: [id number] on: 12-Aug-2017 Influenza, seasonal, injectable on: 04-Sep-2018 Tdap (Boostrix) Lot #: [id number] on: 10-Nov-2018 Fluzone Quadrivalent 0.5 ML Intramuscula r Suspension Lot #: [id number] on: 07-Sep-2019 Family History Name Dates Details [...] Appointment; HEATHER BUTTERFIELD M.D. On: 30-Dec-2019 9:30 Instructions Name Dates Details Instructions not [...]
--- OUTSIDE RECORDS SUMMARY | 2020-06-03 20:24 | XMS REPORT | Summary of Care ---
Author Author [facility] Address [address] [place] [address] Phone Unavailable Care Team Providers Care Care Transitions Manager Name Role Phone SCOUT Aldana, HEATHER Unavailable Unavailable DIONICIO P.A., SANDRO Unavailable Unavailable SAMMY PHILLIPS APRN Unavailable Unavailable TAHIR CLARKE [place], JASPER HOLDER Unavailable Unavailable SAMMY [place] Unavailable Unavailable TAHIR Aldana, JASPER Dorsey Unavailable DIRK CLARKE, NAFISA Manning Unavailable Unavailable SATURDAY , JUSTIN MARTIN Unavailable Unavailab jesús BUTTERFIELD MD [place], HEATHER Amaya Unavailable Unavailable Unavailable Unavailable Functional Status Name Dates Details Functional status health issues are not documented Status: Name Dates Details Cognitive status health issues are not d ocumented Status: Problems Name Dates Details Recurrent Nonepileptic Seizures (780.39) Status: Active Travelers' diarrhea (009.2, A09) Status: Active 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] Intramuscula r Suspension Prefilled Syringe Lot #: [id number] on: 12-Aug-2017 Influenza, seasonal, injectable on: 04-Sep-2018 Tdap (Boostrix) Lot #: [id number] on: 10-Nov-2018 Fluzone Quadrivalent 0.5 ML Intramuscula r Suspension Lot #: [id number] on: 07-Sep-2019 Family History Name Dates Details [...]
--- OUTSIDE RECORDS SUMMARY | 2020-06-03 20:24 | XMS REPORT | Summary of Care ---
Author Author [facility] Address [address] [place] [address] Phone Unavailable Care Team Providers Care Director Of Training Name Role Phone SCOUT Aldana, HEATHER Unavailable [...] Active Acute sinusitis (461.9, J01.90) Status: Active Gastroenteritis (558.9, K52.9) Status: Active BMI 31.0-31.9,adult (V85.31, Z68.31) Status: Active Back pain (724.5, M54.9) Status: Active Acute bilateral low back pain with left- sided sciatica (724.2, M54.42) Status: Active Common cold (460, J00) Status: Active Flu vaccine need (V04.81, Z23) Status: Active Travelers' diarrhea (009.2, A09) Status: Active Recurrent Nonepileptic Seizures (780.39) Status: Active 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 9, J06.9) Status: Active Need for Tdap vaccination (V06.1, Z23) Status: Active Leukopenia (288.50, D72.819) Status: Active Muscle strain of right lower extremity ( 844.9, S86.911A) Status: Active Insomnia, unspecified type (780.52, G47. 00) Status: Active Right elbow tendinitis (727.09, M77.8) Status: Active BMI 32.0-32.9,adult (V85.32, Z68.32) Status: Active Medications Name Dates Details Zolpidem Tartrate 10 MG Oral Tablet TAKE 1 TABLET AT BEDTIME NEEDED FOR INSOMNIA. Quantity: 30 HOPE M.D., OMOTOLA Active Qudexy XR 200 MG Oral Capsule [...] P.A., SANDRO * Start : 07-Sep-2019 Active Escitalopram Oxalate 10 MG Oral Tablet TAKE 1 TABLET DAILY. DUE FOR OFFICE VISIT. PLEASE SCHEDULE APPT FOR OFFICE VIS IT FOR ADDL REFILLS * Quantity: 30 Refills: 0 SAMMY PHILLIPS APRN * Start : 09-Jul-2014 [...] Intramuscula r Suspension Prefilled Syringe Lot #: [id number] on: 12-Aug-2017 Influenza, seasonal, injectable on: 04-Sep-2018 Tdap (Boostrix) Lot #: [id number] on: 10-Nov-2018 Fluzone Quadrivalent 0.5 ML Intramuscula r Suspension Lot #: [id number] on: 07-Sep-2019 Family History Name Dates Details [...] Planned Goals not documented Planned Encounters Appointment; SAMMY PHILLIPS APRN On: 17-Mar-2020 8:30 Appointment; HEATHER BUTTERFIELD M.D. On: 30-Aug-2020 9:30 [...]
--- OUTSIDE RECORDS SUMMARY | 2020-06-03 20:24 | XMS REPORT | Summary of Care ---
Author Author [facility] Address [address] [place] [address] Phone Unavailable Care Team Providers Care Mannequin Molder Name Role Phone SCOUT Aldana, HEATHER Unavailable Unavailable DIONICIO P.A., SANDRO Unavailable Unavailable SAMMY PHILLIPS APRN Unavailable Unavailable TAHIR CLARKE [place], AJSPER HOLDER Unavailable Unavailable SAMMY [place] Unavailable Unavailable [...] PHILLIPS APRN * Start : 09-Jul-2014 Active predniSONE 10 MG Oral Tablet 1 tab po tid x 3 days, 1 tab po bid x 3days, then 1 po qd x 3 days. * Quantity: 18 Refills: 0 DIONICIO P.A., SANDRO * Start : 07-Sep-2019 Active levETIRAcetam ER 750 MG Oral Tablet Extended Release 24 Hour TAKE 2 TABLET DAILY * Quantity: 60 Refills: 11 SCOUT M.D., OMOTOLA Active Zolpidem Tartrate 10 MG Oral Tablet TAKE 1 TABLET AT BEDTIME NEEDED FOR INSOMNIA. * Quantity: 30 Refills: 5 SOCUT M.D., OMOTOLA Active Qudexy XR 200 MG Oral Capsule ER 24 Hour Sprinkle TAKE 2 TABLETS DAILY * Refills: 0 Active Allergies and Adverse Reactions Name Dates [...] Intramuscula r Suspension Prefilled Syringe Lot #: [id number] on: 12-Aug-2017 Influenza, seasonal, injectable on: 04-Sep-2018 Tdap (Boostrix) Lot #: [id number] on: 10-Nov-2018 Fluzone Quadrivalent 0.5 ML Intramuscula r Suspension Lot #: [id number] on: 07-Sep-2019 Family History Name Dates Details [...]
--- OUTSIDE RECORDS SUMMARY | 2020-06-03 20:24 | XMS REPORT | Continuity of Care Document ---
Author Author [facility] t Organization [facility] Address [facility] [address] [place] [address] Phone Unavailable Care Team Providers Care Material Inspector Name Role Phone NO, PCP PCP Unavailable JANET MANN Attphys Unavailable CAMILO RODNEY M.D. Attphys Unavailable SANDRO GREENBERG P.A. Attphys Unavailable HEATHER SOTO M.D. Attphys Unavailable MIRANDA WHITE, PHD Attphys Unavailable SAMMY PHILLIPS APRN Attphys Unavailable Jose Alfredo Soto Attphys Laura Escobar Attphys JASPER HARO M.D. Attphys Unavailable SCOUT PATEL NP Attphys Unavailable KAILA GREENFIELD D.O. Attphys Unavailable Kaila Greenfield Attphys NAFISA CAVAZOS M.D. 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 9 Active 02/13/2019 [facility] Diagnosis Active 2019-02-13 00:00:00 2019-02-27 13:01:00 Andressa Downs S86.911A - STRAIN OF UNSP MUSC/TEND AT L S86.911A - STRAIN OF UNSP MUSC/TEND AT L Active 07/12/2016 Andressa Downs Diagnosis Active 2016-07-12 00:01:00 2016-07-12 11:33:00 [facility] Problem Condition Active [facility] Recurrent Nonepileptic Seizures Recurrent Nonepileptic Seizures Pro blem Active [facility] History of Right handed History of Right handed Problem Resolved [facility] Anxiety Anxiety Problem Active [facility] History of chronic back pain History of chronic back pain Problem Re solved [facility] History of essential hypertension History of essential hypertens ion Problem Resolved [facility] History of pharyngitis History of pharyngitis Problem Resolved [facility] Travelers' diarrhea Travelers' diarrhea Problem Active [facility] Need for Tdap vaccination Need for Tdap vaccination Problem Active [facility] 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 Problem Active [facility] Prostate cancer screening Prostate cancer screening Problem Active [facility] Arthritis Arthritis Problem [facility] Vitamin D deficiency disease Vitamin D deficiency disease Problem Active [facility] Acute sinusitis Acute sinusitis Problem Active [facility] Muscle strain of right lower extremity Muscle strain of righ t lower extremity Problem Active [facility] Common cold Common cold Problem Active [facility] Acute bilateral low back pain with left-sided sciatica Acute bilateral low back pain with left-sided sciatica Problem Active [facility] Back pain Back pain Problem Active [facility] Gastroenteritis Gastroenteritis Problem Active [facility] BMI 31.0-31.9,adult BMI 31.0-31.9,adult Problem Active [facility] Leukopenia Leukopenia Problem Active [facility] Upper respiratory infection, acute Upper respiratory infection, acute Problem Active [facility] Convulsion Convulsion Problem Active [facility] 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, intractable, 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, intractable, without status epilepticus Problem Active [facility] Elevated liver enzymes Elevated liver enzymes Problem Active [facility] Essential (primary) hypertension Essential (primary) hypertensio n Problem Active [facility] Late onset dysthymia Late onset dysthymia Problem Active [facility] Colon cancer screening Colon cancer screening Problem Active [facility] Metabolic encephalopathy Metabolic encephalopathy Problem Active [facility] BMI 32.0-32.9,adult BMI 32.0-32.9,adult Problem Active [facility] Right elbow tendinitis Right elbow tendinitis Problem Active [facility] Insomnia, unspecified type Insomnia, unspecified type Problem Active [facility] 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 Co mplex partial epilepsy without status epilepticus Problem Active [facility] Depression screening negative Depression screening negative Problem Active [facility] Obesity (BMI 30-39.9) Obesity (BMI 30-39.9) Problem Active [facility] Anxiety (finding) Anxi ety (finding) Resolved Problem 05/17/2019 [facility] Problem Resolved 2019-05-17 2 2:33:16 Andressa Downs Chronic back pain (disorder) C hronic back pain (disorder) Resolved Problem 05/17/2019 [facility] Problem Res olved 2019-05-17 22:33:16 [facility] martinez Depressive disorder (disorder) Depressive disorder (disorder) Resolved Problem 05/17/2019 [facility] Problem Res olved 2019-05-17 22:33:16 [facility] martinez Epilepsy (disorder) Epil epsy (disorder) Resolved Problem 05/17/2019 [facility] Problem Resolved 2019-05-17 2 2:33:16 Andressa Downs Postgastrectomy Malabsorption Postgastrectomy Malabsorption Active 12/23/2013 [facility] Problem Active 2013-12-23 22:23:17 Andressa Downs Vitamin D Deficiency Anna min D Deficiency Active 12/23/2013 [facility] Problem Active 2013-12-23 22:23:17 Andressa Downs Hypertension Hype rtension Active 12/23/2013 [facility] Problem Active 2013-12-23 22:23:17 Yaya Downs Recurrent Nonepileptic Seizures Recurrent Nonepileptic Seizures Active 12/23/2013 [facility] Problem Active 2013-12-23 22:23:17 Andressa Downs Anxiety (Symptom) Anxi ety (Symptom) Active 12/23/2013 [facility] Problem Active 2013-12-23 22:23:17 Hollie emopaul Downs Allergies, Adverse Reactions, Alerts Allergy Name Allergy Type Status Severity Reaction(s) Onset Date Inacti ve Date Treating Clinician Comments Source No Known Medication Allergies No Known Medication Allergies Active Andressa Downs No Known Drug Allergies No Known Drug Allergies Active Andressa Downs Family History Family Member Diagnosis Comments Start Date Stop Date Source Father Family history of Coronary Artery Disease [facility] Father Family history of Hemorrhagic stroke [facility] Father Family history of neuropathy [facility] Mother Family history of arthritis [facility] Mother Family history of hypertension [facility] Brother Family history of hypertension [facility] Unknown Family Member Family History 2013-12-18 16:18:25 2 16:18:25 Andressa Downs Social History Social Habit Start Date Stop Date Quantity Comments Source Social History 2013-12-23 22:23:17 2013-12-23 22:23:17 Andressa Downs Sex Ass[birth year] At 1965 00:00:00 1965 00:00:00 Male [facility] Smoking Status Start Date Stop Date Source Social History Andressa Downs Medications Ordered Medication Name Filled Medication Name Start Date Stop Da te Current Medication? Ordering Clinician Indication Dosage Frequency Signature (SIG) Comments Components Source Levetiracetam 750 MG Oral Tablet 2019-03-01 21:17:00 Yes 750 mg = 1 tab, PO, Q12H, # 120 tab, 2 Refill(s), Pharmacy: [facility]/pharmacy #[id number] Andressa Downs 24 HR topiramate 200 MG Extended Release Oral Capsule [Qudex y] 2019-03-01 21:17:00 Yes 400 mg = 2 cap, PO, QAM, # 60 cap, 2 Refill(s), Pharmacy: [facility]/pharmacy #[id number] Top[facility] 150mg CAPSULE ER 2019-03-01 02:00:00 No Notes: atient [facility] topiramate 2019-03-01 02:00:00 No 150 mg, Route: PO, Drug form: ERCAP, Bedtime, Dosing Weight 118.182, kg, Start date: 02/28/19 21:00:00 CDT, Duration: 30 day, Stop date: 03/29/19 21:00:00 CDT Andressa Todd 2019-02-28 16:45:00 No Notes: Same a willy Todd [facility] topiramate 2019-02-28 14:00:00 No 600 mg, Route: PO, Drug form: ERCAP, QAM, Dosing Weight 118.182, kg, Start date: 02/28/19 9:00:00 CDT, Duration: 30 day, Stop date: 03/29/19 9:00:00 CDT [facility] Escitalopram 2019-02-28 14:00:00 No Notes: (Same as: Lexapro) [facility] topiramate 200mg ER cap 2019-02-28 14:00:00 No topiramate 200mg ER cap, 600 mg, 3 cap, Drug form: MISC, Route: PO, Daily, 02/28/19 9:00:00 CDT, Duration: 30 day, Stop date: 03/29/19 9:00:00 CDT [facility] Ativan 2019-02-28 09:52:00 No 2 mg, Route: IVP, Drug form: INJ, ONCE, Dosing Weight 118.182, kg, PRN Anxiety, Start date: 02/28/19 4:52:00 CDT [facility] topiramate 2019-02-28 02:00:00 No 150 mg, Route: PO, Drug form: ERCAP, Bedtime, Dosing Weight 118.182, kg, Start date: 02/27/19 21:00:00 CDT, Duration: 30 day, Stop date: 03/28/19 21:00:00 CDT [facility] Saline Flush 0.9% 2019-02-28 02:00:00 No Notes: Same as: BD Posiflush Sterile [facility] zolpidem 2019-02-27 15:40:00 No 10 mg, Route: PO, Drug form: TAB, Bedtime, Dosing Weight 118.182, kg, PRN Sleep, Start date: 02/27/19 10:40:00 CDT, Duration: 30 day, Stop date: 03/29/19 10:39:00 CDT [facility] 24 HR topiramate 150 MG Extended Release Oral Capsule [Qudex y] 2019-02-27 15:39:00 No 150 mg = 1 cap, PO, Bedtime, 0 Refill(s) [facility] 24 HR topiramate 200 MG Extended Release Oral Capsule [Qudex y] 2019-02-27 15:39:00 No 600 mg = 3 cap, PO, QAM, 0 Re fill(s) [facility] Saline Flush 0.9% 2019-02-27 14:21:00 No Notes: Same as: BD Posiflush Sterile [facility] topiramate 2019-02-27 14:13:00 No 6 00 mg, PO, Daily, 0 Refill(s) [facility] Escitalopram 2019-02-27 14:13:00 No 10 mg, PO, Daily, 0 Refill(s) [facility] z[facility]em 2019-02-27 14:13:00 No 5 mg, PO, B edtime, 0 Refill(s) [facility] Him[facility] 24 HR topiramate 150 MG Extended Release Oral Capsule [Qudex y] 2019-02-27 14:05:00 No 150 mg = 1 cap, PO, Daily, 0 Refill(s) [facility] Himanshu 24 HR topiramate 200 MG Extended Release Oral Capsule [Qudex y] 2019-02-27 14:05:00 No 600 mg = 3 cap, PO, Daily, 0 Refill(s) [facility] escitalopram 10 mg oral tablet 2019-02-27 14:05:00 Yes 10 mg = 1 tab, PO, Daily, # 30 tab, 0 [facility] mg oral tablet 2019-02-27 14:05:00 Yes 10 mg = 1 tab, PO, Bedtime, PRN for sleep, # 14 tab, 0 Refill(s) [facility] Escitalopram Oxalate 10 MG Oral Tablet Escitalopram Oxalate 10 MG Oral Tablet 2014-07-09 00:00:00 Yes SANDRO Orozco 1 table t daily [facility] Topamax 100 MG Oral Tablet 2013-12-23 22:23:17 Yes (Active) [facility] Escitalopram Oxalate 10 MG Oral Tablet Yes ; Start Date: ; End Date: (Active) [facility] Qudexy XR 200 MG Oral Capsule ER 24 Hour Sprinkle Qude xy XR 200 MG Oral Capsule ER 24 Hour Sprinkle Yes TAKE 2 TABLETS JOHN LY [facility] Zolpidem Tartrate 10 MG Oral Tablet Zolpidem Tartrate 10 MG Oral Tabl et Yes HEATHER SOTO M.D. TAKE 1 TABLET AT BEDTIME NEE DED FOR INSOMNIA. [facility] levETIRAcetam ER 750 MG Oral Tablet Extended Release 2 4 Hour levETIRAcetam ER 750 MG Oral Tablet Extended Release 24 Hour Yes HEATHER SOTO M.D. 2 QD TAKE 2 TABLET DAILY [facility] Immunizations Ordered Immunization Name Filled Immunization Name Date Status Comments Source Fluzone Quadrivalent 0.5 ML Intramuscular Suspension 2019-09-07 08:10:00 Completed [facility] Tdap (Boostrix) 2018-11-10 07:45:00 Completed [facility] Influenza, seasonal, injectable 2018-09-04 00:00:00 Comple ilsa [facility] Fluzone Quadrivalent 0.5 ML Intramuscular Suspension Prefill ed Syringe 2017-08-12 08:21:00 Completed [facility] Influenza 2015-05-14 00:00:00 Completed [facility] Fluzone INJ Unknown Completed Approx [id number] [facility] Vital Signs Vital Name Observation Time Observation Value Comments Source Weight 2020-06-01 18:19:00 260 [lb_av] [facility] BMI (Body Mass Index) 2020-06-01 18:19:00 31.6 kg/m2 [facility] Systolic blood pressure 2020-03-22 17:41:00 127 mm[Hg] Loca tion: LUE; Position: Sitting [facility] Diastolic blood pressure 2020-03-22 17:41:00 74 mm[Hg] Loc ation: LUE; Position: Sitting [facility] Body height 2020-03-22 17:41:00 76 [in_us] [facility] Weight 2020-03-22 17:41:00 260 [lb_av] [facility] Body mass index (BMI) [Ratio] 2020-03-22 17:41:00 31.65 kg/m2 [facility] Heart Rate 2020-03-22 17:41:00 75 /min Location: L Radial; Q uality: Normal [facility] Body temperature 2020-03-22 17:41:00 99.2 [degF] Method: Oral [facility] Systolic blood pressure 2019-12-30 09:44:00 134 mm[Hg] [facility] Diastolic blood pressure 2019-12-30 09:44:00 82 mm[Hg] [facility] Body height 2019-12-30 09:44:00 76 [in_us] [facility] Weight 2019-12-30 09:44:00 262 [lb_av] [facility] Body mass index (BMI) [Ratio] 2019-12-30 09:44:00 31.89 kg/m2 [facility] Heart Rate 2019-12-30 09:44:00 89 /min [facility] BP Systolic 2019-09-07 07:57:00 118 mm[Hg] Location: ALISSON Positi on: Sitting [facility] BP Diastolic 2019-09-07 07:57:00 74 mm[Hg] Location: ALISSON Positi on: Sitting [facility] Height 2019-09-07 07:57:00 75 [in_us] [facility] Weight 2019-09-07 07:57:00 262.5 [lb_av] [facility] ity [facility] Body Mass Index Calculated 2019-09-07 07:57:00 32.81 kg/m2 [facility] Temperature 2019-09-07 07:57:00 97.4 [degF] Method: Temporal [facility] Respiration Rate 2019-09-07 07:57:00 16 /min [facility] Heart Rate 2019-09-07 07:57:00 72 /min [facility] BP Systolic 2019-08-18 08:51:00 136 mm[Hg] [facility] BP Diastolic 2019-08-18 08:51:00 80 mm[Hg] [facility] Height 2019-08-18 08:51:00 75 [in_us] [facility] Weight 2019-08-18 08:51:00 261.4375 [lb_av] [facility] Body Mass Index Calculated 2019-08-18 08:51:00 32.68 kg/m2 [facility] Heart Rate 2019-08-18 08:51:00 87 /min [facility] ty [facility] BP Systolic 2019-07-13 08:03:00 111 mm[Hg] Location: ALISSON Pinto on: Sitting [facility] BP Diastolic 2019-07-13 08:03:00 70 mm[Hg] Location: LUE; Positi on: Sitting [facility] Height 2019-07-13 08:03:00 76 [in_us] [facility] Weight 2019-07-13 08:03:00 267.125 [lb_av] [facility] Calculated 2019-07-13 08:03:00 32.52 kg/m2 [facility] Temperature 2019-07-13 08:03:00 97.3 [degF] Method: Temporal [facility] Heart Rate 2019-07-13 08:03:00 80 /min Location: L Brachial Artery; [facility] Respiration Rate 2019-07-13 08:03:00 16 /min [facility] BP Systolic 2019-03-17 13:45:00 110 mm[Hg] Location: KEN; Positi on: Sitting [facility] BP Diastolic 2019-03-17 13:45:00 69 mm[Hg] Location: KEN; Positi on: Sitting [facility] Height 2019-03-17 13:45:00 76 [in_us] [facility] Weight 2019-03-17 13:45:00 264 [lb_av] [facility] Body Mass Index Calculated 2019-03-17 13:45:00 32.14 kg/m2 [facility] Heart Rate 2019-03-17 13:45:00 78 /min [facility] Temperature Oral (F) 2019-03-01 12:00:00 97.3 F [facility] Respitory Rate 2019-03-01 12:00:00 Memori al [facility] Systolic (mm Hg) 2019-03-01 12:00:00 Yaya rial [facility] Diastolic (mm Hg) 2019-03-01 12:00:00 Mem o[facility] [place] Heart Rate 2019-03-01 12:00:00 [facility] [place] Respitory Rate 2019-03-01 00:50:00 Memori al [place] Heart Rate 2019-03-01 00:50:00 [facility] Temperature Oral (F) 2019-03-01 00:50:00 98.1 F [facility] [place] Systolic (mm Hg) 2019-03-01 00:50:00 Yaya rial [facility] Diastolic (mm Hg) 2019-03-01 00:50:00 Vel orial [facility] Respitory Rate 2019-02-28 13:00:00 Mel padron [place] Heart Rate 2019-02-28 13:00:00 [facility] Systolic (mm Hg) 2019-02-28 13:00:00 Yaya miller [facility] Diastolic (mm Hg) 2019-02-28 13:00:00 Vel monterroso [facility] Temperature Oral (F) 2019-02-28 13:00:00 97.1 F [facility] Height 2019-02-27 13:48:00 193.04 cm [facility] BMI Calculated 2019-02-27 13:48:00 Mel padron [place] Weight 2019-02-27 13:48:00 [facility] [place] BP Systolic 2019-02-10 08:36:00 132 mm[Hg] Location: LUE; Positi on: Sitting [facility] BP Diastolic 2019-02-10 08:36:00 76 mm[Hg] Location: LUE; Positi on: Sitting [facility] Height 2019-02-10 08:36:00 76 [in_us] [facility] Weight 2019-02-10 08:36:00 260.5 [lb_av] [facility] Body Mass Index Calculated 2019-02-10 08:36:00 31.71 kg/m2 [facility] Heart Rate 2019-02-10 08:36:00 89 /min [facility] O2 SAT 2019-01-20 13:21:00 99 % [facility] BP Systolic 2019-01-20 12:35:00 129 mm[Hg] Location: LUE; Positi on: Sitting [facility] BP Diastolic 2019-01-20 12:35:00 75 mm[Hg] Location: LUE; Positi on: Sitting [facility] Height 2019-01-20 12:35:00 75 [in_us] [facility] Weight 2019-01-20 12:35:00 256.5 [lb_av] [facility] Body Mass Index Calculated 2019-01-20 12:35:00 32.06 kg/m2 [facility] Heart Rate 2019-01-20 12:35:00 92 /min Location: L Brachial Artery; [facility] Temperature 2019-01-20 12:35:00 99.1 [degF] Method[facility] Respiration Rate 2019-01-20 12:35:00 16 /min [facility] BP Systolic 2018-11-10 07:36:00 101 mm[Hg] Location: LUE; Positi on: Sitting [facility] BP Diastolic 2018-11-10 07:36:00 68 mm[Hg] Location: LUE; Positi on: Sitting [facility] Height 2018-11-10 07:36:00 75 [in_us] [facility] Weight 2018-11-10 07:36:00 256 [lb_av] [facility] Body Mass Index Calculated 2018-11-10 07:36:00 32 kg/m2 [facility] Temperature 2018-11-10 07:36:00 97.4 [degF] Method: Temporal [facility] Heart Rate 2018-11-10 07:36:00 80 /min [facility] Respiration Rate 2018-11-10 07:36:00 16 /min [facility] BP Systolic 2018-04-02 14:27:00 118 mm[Hg] Location: LUE; Positi on: Sitting [facility] BP Diastolic 2018-04-02 14:27:00 79 mm[Hg] Location: LUE; Positi on: Sitting [facility] Height 2018-04-02 14:27:00 75 [in_us] [facility] Weight 2018-04-02 14:27:00 254.1875 [lb_av] [facility] Body Mass Index Calculated 2018-04-02 14:27:00 31.77 kg/m2 [facility] Temperature 2018-04-02 14:27:00 97.1 [degF] Method: Temporal [facility] Heart Rate 2018-04-02 14:27:00 79 /min Location: L Brachial Artery; [facility] Respiration Rate 2018-04-02 14:27:00 16 /min [facility] Procedures Procedure Date / Time Performed Performing Clinician Sourc e Colonoscopy 2020-03-23 00:00:00 Jameson o [facility] [[facility]] TSH, 3RD GENERATION W/REFLEX TO FT4 2019-07-13 00:00:00 [facility] [QLH] CMP W/EGFR 2019-07-13 00:00:00 [facility] [QL] CBC (INCLUDES DIFF/PLT) 2019-07-13 00:00:00 [facility] [Q] LIPID PANEL WITH REFLEX TO DIRECT LDL 2019-07-13 00:00:00 [facility] PET Brain refractory seizures [id number] 2019-03-18 00:00:00 [facility] [UTP] Neuro EMU 2019-02-11 00:00:00 [facility] [QLH] CMP W/EGFR 2018-11-26 00:00:00 [facility] [QL] CBC (INCLUDES DIFF/PLT) 2018-11-10 00:00:00 [facility] [QL] CMP W/EGFR 2018-11-10 00:00:00 [facility] [QL] TSH, 3RD GENERATION W/REFLEX TO FT4 2018-11-10 00:00:00 [facility] [QL] TSH, 3RD GENERATION W/REFLEX TO FT4 2018-04-02 00:00:00 [facility] [QL] CMP W/EGFR 2018-04-02 00:00:00 [facility] [QL] CBC (INCLUDES DIFF/PLT) 2018-04-02 00:00:00 [facility] [] LIPID PANEL WITH REFLEX TO DIRECT LDL 2018-04-02 00:00:00 [facility] History of Gastric Bypass With Luke-en-Y Short Limb [facility] History of Oral Surgery [facility] Ambulatory EEG [facility] Gastric bypass [facility] MRI of head [facility] Plan of Care Planned Activity Planned Date Details Comments Source Future Scheduled Test 2020-04-11 00:00:00 Colonoscopy [code = 19172 001] [facility] Diagnostic Test Pending 2019-02-11 00:00:00 [UTP] Neuro EMU [code = [UTP] Neuro EMU] [facility] Diagnostic Test Pending 2019-02-09 00:00:00 [QLH] CMP W/EGFR [code = [QLH] CMP W/EGFR] [facility] Future Scheduled Test 2013-12-18 16:18:25 Plan of Care [code = 1877 6-5] [facility] Future Appointment 2020-08-30 09:30:00 Katya ROMERO [facility] Instructions Back [facility] [facility] Encounters Start Date/Time End Date/Time Encounter Type Admission Type Attendi [facility] Care Department Encounter ID Source 2019-02-16 15:14:53 Inpatient [facility] [id number] [facility] 2020-06-01 17:57:00 2020-06-01 19:20:00 Departed Emergency Room KENJANET ELIAS [facility] [id number] [facility] 2020-03-22 17:30:00 2020-03-22 17:30:00 Appointment; CAMILO RODNEY M.D. CATALANO, MARC, M.D. [facility], [address] [id number] [facility] 2020-03-17 09:00:00 2020-03-17 09:00:00 Appointment; SANDRO GREENBERG P.A. CRUZ, LETICIA, P.A. [facility], [address] [id number] [facility] 2019-12-30 09:30:00 2019-12-30 09:30:00 Appointment; HEATHER SOTO M.D. HOPE, OMOTOLA, M.D. [facility] Neurology [facility] [id number] [facility] 2019-09-07 08:00:00 2019-09-07 08:00:00 Appointment; SANDRO GREENBERG P.A. CRUZ, LETICIA, P.A. [facility] [id number] [facility] 2019-08-18 15:00:00 2019-08-18 15:00:00 Appointment; HEATHER SOTO M.D. HOPE, OMOTOLA, M.D. [facility] Neurology [facility] [id number] [facility] 2019-08-17 09:30:00 2019-08-17 09:30:00 Appointment; MIRANDA WHITE , PHD MIRANDA WHITE, PHD [facility] [id number] [facility] 2019-07-13 08:00:00 2019-07-13 08:00:00 Appointment; SAMMY PHILLIPS A PRN BECK, SHERI, APRN UTP [facility] [id number] [facility] 2019-06-16 13:30:00 2019-06-16 13:30:00 Appointment; HEATHER SOTO M.D. HOPE, OMOTOLA, M.D. [facility] [id number] [facility] 2019-05-19 15:30:00 2019-05-19 15:30:00 Appointment; HEATHER SOTO M.D. HOPE, OMOTOLA, M.D. [facility] [id number] [facility] 2019-05-15 14:57:00 2019-05-15 23:59:00 Outpatient Judah Soto [facility] [id number] 2019-05-15 14:57:00 2019-05-15 14:57:00 Outpatient [facility] [id number] [facility] 2019-03-17 13:30:00 2019-03-17 13:30:00 Appointment; HEATHER SOTO M.D. HOPE, OMOTOLA, M.D. [facility] Neurology [facility] [id number] [facility] 2019-02-27 08:33:00 2019-03-01 17:00:00 Outpatient Laura Escobar [facility] [id number] 2019-02-10 08:30:00 2019-02-10 08:30:00 Appointment; HEATHER SOTO M.D. HOPE, OMOTOLA, M.D. [facility] Neurology [id number] [facility] 2019-01-20 12:30:00 2019-01-20 12:30:00 Appointment; SAMMY PHILLIPS A PRN BECK, SHERI, APRN UTP [facility] [id number] [facility] 2018-11-10 07:30:00 2018-11-10 07:30:00 Appointment; SAMMY PHILLIPS A PRN BECK, SHERI, APRN UTP [facility] [address] [id number] [facility] 2018-04-02 14:15:00 2018-04-02 14:15:00 Appointment; SAMMY PHILLIPS A PRN BECK, SHERI, APRN [facility] [id number] [facility] 2017-08-12 08:15:00 2017-08-12 08:15:00 Appointment; JASPER HARO M.D. MURPHY, THOMAS, M.D. [facility] [id number] [facility] 2017-07-20 09:00:00 2017-07-20 09:00:00 Appointment; NADIA PATEL, SCOUT JOSEPH NP UTP [facility] [id number] [facility] 2017-03-16 10:45:00 2017-03-16 10:45:00 Appointment; KAILA GREENFIELD D.O. YEH, SHAO-CHUN, D.O. [facility] [id number] [facility] 2017-02-11 09:30:00 2017-02-11 09:30:00 Appointment; JASPER HARO M.D. MURPHY, THOMAS, M.D. [facility] [id number] [facility] 2017-01-14 09:45:00 2017-01-14 09:45:00 Appointment; JASPER HARO M.D. MURPHY, THOMAS, M.D. [facility] [id number] [facility] 2016-12-22 09:03:00 2016-12-22 23:59:00 Outpatient Tacho Greenfield MHHOIP MHHOIP [id number] 2016-12-10 12:48:00 2016-12-10 23:59:00 Outpatient Trevor Greenfield MHOIB MHOIB [id number] 2016-12-10 12:00:00 2016-12-10 12:00:00 Appointment; KAILA GREENFIELD D.O. YEH, SHAO-CHUN, D.O. UTP [facility]TP [id number] [facility] 2016-09-18 11:45:00 2016-09-18 11:45:00 Appointment; SHILPA CAVAZOS M.D. BORTOLOTTI, JULIE, M.D. UTP [facility]TP [id number] [facility] 2016-07-12 11:24:00 2016-07-12 23:59:00 Outpatient Trevor Greenfield MHOIB MHOIB [id number] 2016-07-12 10:45:00 2016-07-12 10:45:00 Appointment; KAILA GREENFIELD D.O. YEH, SHAO-CHUN, D.O. UTP [facility] [id number] [facility] 2016-05-29 09:45:00 2016-05-29 09:45:00 Appointment; KAILA GREENFIELD D.O. YEH, SHAO-CHUN, D.O. UTP [facility]TP [id number] [facility] 2013-12-23 16:23:18 2013-12-23 16:23:17 Outpatient [facility] [id number] 2013-12-22 08:48:56 2013-12-22 08:48:56 Outpatient IE IE [id number] 2013-12-18 10:18:25 2013-12-18 10:18:25 Outpatient [facility] [id number] Results Test Description Test Time Test Comments Results Result Comments Source L SPINE 4 OR MORE VIEWS - HOPD 2020-06-01 18:54:00 [place] [address] Patient Name: HIEU ATKINS MR #: [id number] : 1965 Age/Sex: 54/M Req #: [id number] Adm Physician: Ordered by: JANET MANN MD Report #: [id number] Location: [facility] Room/Bed: Procedure: [id number] HOPD/L SPINE 4 OR MORE VIEWS - [facility]OPD Exam Date: 06/01/20 Exam Time: 1825 REPORT STATUS: Signed X-ray number spine HISTORY: Lumbosacral spine pain. COMPARISON: None available. FINDINGS: ALIGNMENT: Normal. Vertebral bodies: normal height. Intervertebral disc spaces: there is multilevel degenerative disc disease most pronounced at L5-S1 level. Facet: There is multilevel facet arthrosis most pronounced at the lower lumbar spine. Others: The sacroiliac joints are symmetric. Soft tissues: normal. IMPRESSION: Lumbar spondylosis with multilevel degenerative disease. No acute fracture or dislocation of the lumbosacral spine. Signed by: Nain Torre MD on 06/01/2020 6:57 PM Dictated By: NAIN TORRE MD 56 Transcribed By: THUY on 06/01/201856 COPY TO: JANET MANN MD SACRUM COCCYX 2+ VEIWS - HOPD 2020-06-01 18:54:00 [place] [address] Patient Name: HIEU ATKINS MR #: [id number] : 1965 Age/Sex: 54/M Req #: [id number] Adm Physician: Ordered by: JANET MANN MD Report #: [id number] Location: [facility] Room/Bed: Procedure: [id number] HOPD/SACRUM COCCYX 2+ VEIWS - HOPD Exam Date: 06/01/20 Exam Time: 182 REPORT STATUS: Signed X-ray number spine HISTORY: Lumbosacral spine pain. COMPARISON: None available. FINDINGS: ALIGNMENT: Normal. Vertebral bodies: normal height. Intervertebral disc spaces: there is multilevel degenerative disc disease most pronounced at L5-S1 level. Facet: There is multilevel facet arthrosis most pronounced at the lower lumbar spine. Others: The sacroiliac joints are symmetric. Soft tissues: normal. IMPRESSION: Lumbar spondylosis with multilevel degenerative disease. No acute fracture or dislocation of the lumbosacral spine. Signed by: Nain Torre MD on 06/01/2020 6:57 PM Dictated By: NAIN TORRE MD 56 Transcribed By: THUY on 06/01/201856 COPY TO: JANET MANN MD PELVIS 1-2 VIEW - [facility]OPD 2020-06-01 18:52:00 [place] [address] Patient Name: HIEU ATKINS MR #: [id number] : 1965 Age/Sex: 54/M Req #: [id number] Adm Physician: Ordered by: JANET MANN MD Report #: [id number] Location: [facility] Room/Bed: Procedure: [id number] HOPD/PELVIS 1-2 VIEW - HOPD Exam Date: 06/01/20 Exam Time: 1825 REPORT STATUS: Signed X-ray site and # of views HISTORY: Pelvic pain. COMPARISON: None available. FINDINGS: Bones/joints: No acute fracture or dislocation. There are mild degenerative changes of the bilateral hip joints. The sacroiliac joints are symmetric. No pubic symphyseal widening. Soft tissues: No focal soft tissue abnormality. IMPRESSION: 1. No acute osseous or soft tissue abnormality. 2. Mild degenerative changes of the bilateral hips. Signed by: Nain Torre MD on 06/01/2020 6:54 PM Dictated By: NAIN TORRE MD 53 Transcribed By: THUY on 1853 COPY TO: JANET MANN MD CHEM PANEL 2019-02-27 18:56:00 Test Item B/C Ratio (test code = B/C Ratio) 12 1 6-25 [facility] [id number] 18:56:0011.5[facility] 2019-02-27 18:56:002.7[facility] GBOMD9484-53-10 18:56:00* Test Item Value Reference Range Interpretation Comments A/G Ratio (test code = A/G Ratio) 1.3 1 0.7-1.6 [facility] ZNKKM2490-96-90 18:56:0086[facility] PAN[facility] 2019-02-27 18:56:0013[facility] PNTFY2759-19-80 18:56:006.3[facility] FHJVA1976-14-23 18:56:003.6[facility] VIHDB5800-82-35 18:56:0021[facility] QBRGR0576-28-91 18:56:008.5[facility] VAXVU7661-75-41 18:56:0096[facility] RAOGU3451-19-38 18:56:000.3 [facility] FWJVH2851-26-34 18:56:0012[facility] PANEL 2019-02-27 18:56:001.00[facility] HLUWU3603-97-00 18:56:003.5[facility] KDENG8475-46-02 18:56:11430Qjpoppur HermannCHEM AXPZQ1984-84-02 18:56:08005Nbaefddl HermannCHEM TYWFC8808-23-48 18:56:0022[facility] ELJTW3423-58-32 18:56:04463Nvvlavzk VdnookpWOASABCIKA0830-30-31 18:56:004.23 [facility] FrcpikeLDOZQXHOFF8172-78-75 18:56:0013.5[facility]ann[facility]MATOLOGY 2019-02-27 18:56:0038.5[facility] QiluimrYYJJYLYEJC0961-09-94 18:56:003.2[facility] DwlrmwsVOZWQJGAGD8942-10-70 18:56:48380Lgubebod DuuxsodFVWIMOKWJZ7053-66-99 18:56:008.2[facility] InlgfmkRAOBFYIEKF8891-51-56 18:56:0091.0[facility] NVKHPLOFYL1344-34-50 18:56:00* Test Item Value Reference Range Interpretation Comments MCH (test code = MCH) 32.0 pg 27.0-31.0 [facility] EyjnnllRWOHPLCOPO2675-86-71 18:56:0035.1[facility] 2019-02-27 18:56:0013.0[facility] CcvpmvnZYOSELEKFT7059-41-06 18:56:001.3[facility] NbcqvziTAUCWRNMPT4268-64-44 18:56:000.5[facility] XpkczojEHGOPLDZGI5649-96-94 18:56:0041.8[facility] JxgcigtPGJSZVRVFC6109-53-21 18:56:001.8[facility] ROPATSRHXP4198-00-40 18:56:0010.4[facility] XiodansRTTEETVIOA9903-18-39 18:56:00 45.5[facility] SqpvirlOGLDYLITBB6480-03-12 18:56:000.1[facility]ann[facility]OLOGY 2019-02-27 18:56:000.3[facility] QuentgrEBYYKPBESX7530-75-05 18:56:001.5[facility] XrratbzILYDMBGVTX5096-93-22 18:56:0015.3[facility][O] Streptococcus Test Rapid (In Office)2019-01-20 13:19:00* Test Item Value Reference Range Interpretation Comments Group A Strep Screen; Normal (test code = 17784-9) neg N [facility][O] Flu Test (in Office )2019-01-20 13:19:00* Test Item Value Reference Range Interpretation Comments Flu A (test code = Flu A) neg N Flu B (test code = Flu B) neg N [facility][QLH] CMP W/[id number] 08:04:00* Test Item Value Reference Range Interpretation Comments GLUCOSE; Normal (test code = 1547-9) 84 mg/dl 65-99 N Fasting reference interval UREA NITROGEN (BUN) (test code = UREA NITROGEN (BUN)) 10 mg/dl 7-25 N CREATININE (test code = CREATININE) 1.10 mg/dl 0.70-1.33 N For patients >49 years of age, the reference limitfor Creatinine is approximately 13% higher for peopleidentified as -[place]. eGFR NON- (test code = eGFR NON-BETTY N ANGOLAN) 77 {ML/MIN/1.7} > OR = 60 N eGFR (test code = eGFR ) 89 {ML/MIN/1.7} > OR = 60 N BUN/CREATININE RATIO (test code = BUN/CREATININE RATIO) NOT APPLICA BLE 6-22 SODIUM (test code = SODIUM) 140 mmol/L 135-146 N POTASSIUM (test code = POTASSIUM) 3.9 mmol/L 3.5-5.3 N CHLORIDE (test code = CHLORIDE) 110 mmol/L 98-110 N CARBON DIOXIDE (test code = CARBON DIOXIDE) 25 mmol/L 20-32 N CALCIUM (test code = CALCIUM) 9.1 mg/dl 8.6-10.3 N PROTEIN, TOTAL (test code = PROTEIN, TOTAL) 6.8 g/dl 6.1-8.1 N ALBUMIN (test code = ALBUMIN) 4.2 g/dl 3.6-5.1 N GLOBULIN (test code = GLOBULIN) 2.6 {G/DL CALC} 1.9-3.7 N ALBUMIN/GLOBULIN RATIO (test code = ALBUMIN/GLOBULIN RATIO) 1.6 {CALC} 1.0-2.5 N BILIRUBIN, TOTAL; Normal (test code = 72871-5) 0.4 mg/dl 0.2-1.2 N ALKALINE PHSPHATASE (test code = ALKALINE PHSPHATASE) 94 u/l 40-115 N AST; Above High Threshold (test code = 1916-6) 43 u/l 10-35 ALT; Normal (test code = 1742-6) 29 u/l 9-46 N [facility]] CBC (INCLUDES DIFF/PLT)2018-11-10 08:04:00* Test Item Value Reference Range Interpretation Comments WHITE BLOOD CELL COUNT (test code = WHITE BLOOD CELL COUNT) 3.2 {Thousand/u} 3.8-10.8 RED BLOOD CELL COUNT (test code = RED BLOOD CELL COUNT) 4.50 {Million/uL} 4.20-5.80 N HEMAGLOBIN; Normal (test code = 58455-2) 14.1 g/dl 13.2-17.1 N HEMATOCRIT; Normal (test code = 4544-3) 40.9 % 38.5-50.0 N MCV; Normal (test code = 787-2) 90.9 fL 80.0-100.0 N MCHC; Normal (test code = 74358-5) 34.5 g/dl 32.0-36.0 N RDW; Normal (test code = 788-0) 12.5 % 11.0-15.0 N PLATELET COUNT; Normal (test code = 777-3) 191 {Thousand/u} 140-400 N MPV; Normal (test code = 73447-5) 10.1 fL 7.5-12.5 N ABSOLUTE NEUTROPHILS (test code = ABSOLUTE NEUTROPHILS) 1654 {cells/uL} 0240-5739 N ABSOLUTE LYMPHOCYTES (test code = ABSOLUTE LYMPHOCYTES) 1059 {cells/uL} 850-3900 N ABSOLUTE MONOCYTES (test code = ABSOLUTE MONOCYTES) 387 {cells/uL} 200-950 N ABSOLUTE EOSINOPHILS (test code = ABSOLUTE EOSINOPHILS) 80 {cells/u L} 15-500 N ABSOLUTE BASOPHILS (test code = ABSOLUTE BASOPHILS) 19 {cells/uL} 0 -200 N NEUTROPHILS (test code = NEUTROPHILS) 51.7 % N LYMPHOCYTES (test code = LYMPHOCYTES) 33.1 % N MONOCYTES; Normal (test code = 69238-7) 12.1 % N EOSINOPHILS; Normal (test code = 60725-8) 2.5 % N BASOPHILS; Normal (test code = 94623-8) 0.6 % N [facility][QL] TSH, 3RD GENERATION W/REFLEX TO FT4 2018-11-10 08:04:00* Test Item Value Reference Range Interpretation Comments TSH, 3RD GENERATION W/REFLEX TO FT4 (paresh t code = TSH, 3RD GENERATION W/REFLEX TO FT4) 1.36 {MIU/L} 0.40-4.50 N [facility][Q] HEPATITIS PANEL, ACUTE [id number] 08:04:00* Test Item Value Reference Range Interpretation Comments HEPATITIS A IGM (test code = HEPATITIS A IGM) NON-REACTIVE NON-REAC TIVE N HEPATITIS B SURFACE ANTIGEN; Normal (test code = 5195-3) NON -REACTIVE NON-REACTIVE N HEPATITIS B CORE ANTIBODY (IGM); Normal (test code = 17753-6 ) NON-REACTIVE NON-REACTIVE N HEPATITIS C ANTIBODY; Normal (test code = 94055-2) NON-REACTIVE NON -REACTIVE N SIGNAL TO CUT-OFF (test code = SIGNAL TO CUT-OFF) 0.05 <1.0 0 N [facility]] [id number] 08:04:00* Test Item Value Reference Range Interpretation Comments GGT (test code = GGT) 25 u/l 3-95 N [facility]] [id number] 08:04:00* Test Item Value Reference Range Interpretation Comments FERRITIN (test code = FERRITIN) 72 ng/ml 20-380 N [facility][] LIPID PANEL WITH REFLEX TO DIRECT LDL 2018-05-02 08:06:00* Test Item Value Reference Range Interpretation Comments CHOLESTEROL, TOTAL; Normal (test code = 2093-3) 136 mg/dl <200 N HDL CHOLESTEROL; Normal (test code = 2085-9) 51 mg/dl >40 N TRIGLYCERIDES; Normal (test code = 2571-8) 52 mg/dl <150 N LDL-CHOLESTEROL; Normal (test code = 20854-0) 72 {MG/DL BALBINA} N Reference range: <100 Desirable range <100 mg/dL for primary prevention; <70 mg/dL for patients with CHD or diabetic patients with > or = 2 CHD risk factors. LDL-C is now calculated using the Orlando-Mikel calculation, which is a validated novel method providing better accuracy than the Friedewald equation in the estimation of LDL-C. Orlando PENN et al. CARLINE. 2013;310(19): 0573-8111 (http ://education.[employer]com/faq/BQA725) CHOL/HDLC RATIO (test code = CHOL/HDLC RATIO) 2.7 {CALC} <5.0 N NON HDL CHOLESTEROL (test code = NON HDL CHOLESTEROL) 85 {MG/DL CA L} <130 N For patients with diabetes plus 1 major ASCVD risk factor, treating to a non-HDL-C goal of <100 mg/dL (LDL-C of <70 mg/dL) is considered a therapeutic option. [facility]] CMP [id number] 08:06:00* Test Item Value Reference Range Interpretation Comments GLUCOSE; Normal (test code = 1547-9) 78 mg/dl 65-99 N Fasting reference interval UREA NITROGEN (BUN) (test code = UREA NITROGEN (BUN)) 11 mg/dl 7-25 N CREATININE (test code = CREATININE) 1.06 mg/dl 0.70-1.33 N For patients >49 years of age, the reference limitfor Creatinine is approximately 13% higher for peopleidentified as -[place]. eGFR NON- (test code = eGFR NON-BETTY N ANGOLAN) 81 {ML/MIN/1.7} > OR = 60 N eGFR (test code = eGFR ) 94 {ML/MIN/1.7} > OR = 60 N BUN/CREATININE RATIO (test code = BUN/CREATININE RATIO) NOT APPLICA BLE 6-22 SODIUM (test code = SODIUM) 140 mmol/L 135-146 N POTASSIUM (test code = POTASSIUM) 4.2 mmol/L 3.5-5.3 N CHLORIDE (test code = CHLORIDE) 109 mmol/L 98-110 N CARBON DIOXIDE (test code = CARBON DIOXIDE) 24 mmol/L 20-31 N CALCIUM (test code = CALCIUM) 9.2 mg/dl 8.6-10.3 N PROTEIN, TOTAL (test code = PROTEIN, TOTAL) 6.5 g/dl 6.1-8.1 N ALBUMIN (test code = ALBUMIN) 4.2 g/dl 3.6-5.1 N GLOBULIN (test code = GLOBULIN) 2.3 {G/DL CALC} 1.9-3.7 N ALBUMIN/GLOBULIN RATIO (test code = ALBUMIN/GLOBULIN RATIO) 1.8 {CALC} 1.0-2.5 N BILIRUBIN, TOTAL; Normal (test code = 80103-3) 0.5 mg/dl 0.2-1.2 N ALKALINE PHSPHATASE (test code = ALKALINE PHSPHATASE) 77 u/l 40-115 N AST; Normal (test code = 1916-6) 15 u/l 10-35 N ALT; Below Low Threshold (test code = 1742-6) 7 u/l 9-46 [facility]] CBC (INCLUDES DIFF/PLT)2018-05-02 08:06:00* Test Item Value Reference Range Interpretation Comments WHITE BLOOD CELL COUNT (test code = WHITE BLOOD CELL COUNT) 3.2 {Thousand/u} 3.8-10.8 RED BLOOD CELL COUNT (test code = RED BLOOD CELL COUNT) 4.52 {Million/uL} 4.20-5.80 N HEMOGLOBIN; Normal (test code = 39524-2) 14.5 g/dl 13.2-17.1 N HEMATOCRIT; Normal (test code = 4544-3) 41.1 % 38.5-50.0 N MCV; Normal (test code = 787-2) 90.9 fL 80.0-100.0 N MCHC; Normal (test code = 02071-9) 35.3 g/dl 32.0-36.0 N RDW; Normal (test code = 788-0) 12.2 % 11.0-15.0 N PLATELET COUNT; Normal (test code = 777-3) 179 {Thousand/u} 140-400 N MPV; Normal (test code = 74905-4) 9.9 fL 7.5-12.5 N ABSOLUTE NEUTROPHILS (test code = ABSOLUTE NEUTROPHILS) 1600 {cells/uL} 9419-6468 N ABSOLUTE LYMPHOCYTES (test code = ABSOLUTE LYMPHOCYTES) 1254 {cells/uL} 850-3900 N ABSOLUTE MONOCYTES (test code = ABSOLUTE MONOCYTES) 288 {cells/uL} 200-950 N ABSOLUTE EOSINOPHILS (test code = ABSOLUTE EOSINOPHILS) 38 {cells/u L} 15-500 N ABSOLUTE BASOPHILS (test code = ABSOLUTE BASOPHILS) 19 {cells/uL} 0 -200 N NEUTROPHILS (test code = NEUTROPHILS) 50 % N LYMPHOCYTES (test code = LYMPHOCYTES) 39.2 % N MONOCYTES; Normal (test code = 35394-3) 9.0 % N EOSINOPHILS; Normal (test code = 14489-4) 1.2 % N BASOPHILS; Normal (test code = 72985-2) 0.6 % N [facility]] TSH, 3RD GENERATION W/REFLEX TO FT4 2018-05-02 08:06:00* Test Item Value Reference Range Interpretation Comments TSH, 3RD GENERATION W/REFLEX TO FT4 (paresh t code = TSH, 3RD GENERATION W/REFLEX TO FT4) 1.07 {MIU/L} 0.40-4.50 N [facility]
--- OUTSIDE RECORDS SUMMARY | 2020-06-03 20:24 | XMS REPORT ---
Author Author HIEU GREENBERG SANDRO Organization Unknown Address Unknown Phone Care Team Providers Care Slab Off Mill Tender Name Role Phone SANDRO GREENBERG PP Unavailable Reason for Referral No Reason for Referral was given. History of Present Illness No HPI available. 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 Encounters * AUDIT 12/18/2013
--- OUTSIDE RECORDS SUMMARY | 2020-06-03 20:24 | XMS REPORT | Summary of Care ---
Author Author Kenya WAYNE, HIEU BROCK Organization Unknown Address [facility] Phone Unavailable Care Team Providers Care Layout Worker Name Role Phone SCOUT Aldana, HEATHER Unavailable Unavailable DIONICIO Orozco SANDRO Unavailable Unavailable SAMMY PHILLIPS APRN Unavailable Unavailable TAHIR CLARKE MS, JASPER HOLDER Unavailable Unavailable JASPER HARO M.D. [...] FOR INSOMNIA. * Quantity: 30 Refills: 5 HOPE M.D., OMOTOLA Active levETIRAcetam ER 750 MG [...] Intramuscula r Suspension Prefilled Syringe Lot #: [id number] on: 12-Aug-2017 Influenza, seasonal, injectable on: 04-Sep-2018 Tdap (Boostrix) Lot #: [id number] on: 10-Nov-2018 Fluzone Quadrivalent 0.5 ML Intramuscula r Suspension Lot #: [id number] on: 07-Sep-2019 Family History Name Dates Details [...] (finding) Vital Signs Date Test Result Details [id number]-Tqr-90238:44 Systolic blood pressure 134 mm[Hg] Status: Diastolic [...] On: 30-Aug-2020 9:30 Interventions Provided Medication Changes* Escitalopram Oxalate 10 MG Oral Tablet - Renew Instructions Name Dates Details Instructions not documented [...]
--- OUTSIDE RECORDS SUMMARY | 2020-06-03 20:25 | XMS REPORT | Summary of Care ---
Author HIEU Garrett M.A. Organization Unknown Address Unknown Phone Unavailable Care Team Providers Care Director Digital Strategy Name Role Phone SCOUT Aldana, HEATHER Unavailable Unavailable DIONICIO Orozco, SANDRO Unavailable Unavailable Alek Barrera, Casie Unavailable Unavailable RONEL Aldana, WARD Unavailable Unavailable TAHIR CLARKE ID, JASPER HOLDER Unavailable Unavailable JACQUELINE MEDELLINP, SAMMY Unavailable Unavailable DIONICIO BETANCOURT, SANDRO Unavailable Unavailable Ronel CLARKE, Ward Unavailable Unavailable TAHIR Aldana, JASPER Unavailable Unavailable DIRK CLARKE, NAFISA Manning Unavailable Unavailable SATURDAY , JUSTIN MARTIN Unavailable Unavailab jesús BUTTERFIELD MD ID, OMOTOLA A Unavailable Unavailable Unavailable Unavailable Functional Status Name [...] Essential (primary) hypertension (401.9, I10) Status: Active Metabolic encephalopathy (348.31, G93.41 ) Status: Active BMI 32.0-32.9,adult (V85.32, Z68.32) Status: Active Right elbow tendinitis (727.09, M77.8) Status: Active Insomnia, unspecified type (780.52, G47. 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) Status: Active Anxiety (300.00, F41.9) Status: Active Late onset dysthymia (300.4, F34.1) Status: Active Depression screening negative (V79.0, Z1 3.31) Status: Active Obesity (BMI 30-39.9) (278.00, E66.9) Status: Active Colon cancer screening (V76.51, Z12.11) Status: Active BMI 31.0-31.9,adult (V85.31, Z68.31) Status: Active Medications Name Dates Details Escitalopram Oxalate 10 MG Oral Tablet 1 tablet daily Quantity: 90 DIONICIO P.A., SANDRO * Start : 09-Jul-2014 Active Qudexy XR 200 MG Oral Capsule ER 24 Hour Sprinkle TAKE 2 TABLETS DAILY * Refills: 0 Active Zolpidem Tartrate 10 MG Oral Tablet TAKE 1 TABLET AT BEDTIME NEEDED FOR INSOMNIA. * Quantity: 30 Refills: 5 HEATHER BUTTERFIELD M.D. Active levETIRAcetam ER 750 MG Oral Tablet Extended Release 24 Hour TAKE 2 TABLET DAILY * Quantity: 60 Refills: 11 SCOUT Aldana, OMLAUREN Active Suprep Bowel Prep Kit 17.5-3.13-1.6 GM/177ML Oral Solution DILUTE CONTENTS AND USE DIRECTED FOR BOWEL PREP * Quantity: 1 Refills: 0 WARD RODNEY M.D. * Start : 22-Mar-2020 Active 2 x 177 ML Bottle Allergies and Adverse Reactions Name Dates Details [...] handed Status: Resolved Procedures Procedure Dates Details Colonoscopy Date: 23-Mar-2020 History of Gastric Bypass With Luke-en-Y Short Limb Completed History of Oral Surgery Completed Immunization Name Dates Details Fluzone INJ Comments: Approx [id number] Influenza on: 14-May-2015 Fluzone Quadrivalent 0.5 ML Intramuscula r Suspension Prefilled Syringe Lot #: [id number] on: 12-Aug-2017 Influenza, seasonal, injectable on: 04-Sep-2018 Tdap (Boostrix) Lot #: [id number] on: 10-Nov-2018 Fluzone Quadrivalent 0.5 ML Intramuscula r Suspension Lot #: [id number] on: 07-Sep-2019 Family History Name Dates Details [...] (finding) Vital Signs Date Test Result Details [id number] Systolic blood pressure 127 mm[Hg] Status: Comments : Location: LUE; Position: Sitting Diastolic blood pressure 74 mm[Hg] Status: Comment s: Location: LUE; Position: Sitting Body height 76 in Status: Weight 260 lb Status: Body mass index (BMI) [Ratio] 31.65 kg/m2 Status: Body surface area Derived from formula 2.48 m2 S tatus: Heart Rate 75 /min Status: Comments: Lo cation: L Radial; Quality: Normal Body temperature 99.2 f Status: [facility] [id number] Physical Findings 1 Status: Comments: PH Q-9 Adult Depression Screening 98-Iyn-04173:58 Physical Findings 0 Status: Comments: Eleazar lima Screen - How many times in the past yr have you had 5 (for M) or 4 (for F) or 4 (for all > 65yrs) or more drinks in a day? Results Date Description Value Details Results not documented Plan of Care Name Dates Details Planned Observations Colonoscopy On: 11-Apr-2020 Intent Planned Goals not documented Planned Encounters Appointment; WARD RODNEY M.D. On: 11-Apr-2020 7:00 Appointment; HEATHER BUTTERFIELD M.D. On: 30-Aug-2020 9:30 [...] Diagnosis: Problem not documented On: 17-Mar-2020 9:00 Appointment; WARD RODNEY M.D. Encounter Diagnosis: Problem not documented On: 22-Mar-2020 17:30
--- OUTSIDE RECORDS SUMMARY | 2020-06-03 20:25 | XMS REPORT | Summary of Care ---
Author Author HIEU Kimball Organization Unknown Address Unknown Phone Unavailable Care Team Providers Care Security Operations Analyst Name Role Phone SCOUT Aldana, HEATHER Unavailable Unavailable DIONICIO P.AEdmund, SANDRO Unavailable Unavailable Rosana Kimball Unavailable Unavailable TAHIR CLARKE [place], JASPER HOLDER Unavailable Unavailable JACQUELINE SORENSEN, SAMMY Unavailable Unavailable DIONICIO BETANCOURT, SANDRO Unavailable Unavailable TAHIR Aldana, JASPER Dorsey Unavailable DIRK CLARKE, NAFISA Manning Unavailable Unavailable SATURDAY , JUSTIN MARTIN Unavailable Unavailab jesús BUTTERFIELD MD [place], HEATHER Amaya Unavailable Unavailable Unavailable Unavailable Functional [...] screening negative (V79.0, Z1 3.31) Status: Active Colon cancer screening (V76.51, Z12.11) Status: Active Obesity (BMI 30-39.9) (278.00, E66.9) Status: Active Medications Name Dates Details Escitalopram [...] DAILY * Quantity: 60 Refills: 11 SCOUT M.DEdmund, OMOTOLA Active Allergies and Adverse [...] Intramuscula r Suspension Prefilled Syringe Lot #: [id number] on: 12-Aug-2017 Influenza, seasonal, injectable on: 04-Sep-2018 Tdap (Boostrix) Lot #: [id number] on: 10-Nov-2018 Fluzone Quadrivalent 0.5 ML Intramuscula r Suspension Lot #: [id number] on: 07-Sep-2019 Family History Name Dates Details [...] (finding) Vital Signs Date Test Result Details [id number] Physical Findings 1 Status: Comments: PH Q-9 Adult Depression Screening 08-Jce-07429:58 Physical Findings 0 Status: Comments: Al cohol Screen - How many times in the past yr have you had 5 (for M) or 4 (for F) or 4 (for all > 65yrs) or more drinks in a day? Results Date Description Value Details Results not documented Plan of Care Name Dates Details Planned Observations Planned Goals not documented Planned Encounters Gastroenterology Referral Appointment; CAMILO RODNEY M.D. On: 22-Mar-2020 17:30 Appointment; HEATHER BUTTERFIELD M.D. On: 30-Aug-2020 9:30 [...]
--- OUTSIDE RECORDS SUMMARY | 2020-06-03 20:25 | XMS REPORT | Summary of Care ---
Author Author [facility] Address [address] [place] [address] Phone Unavailable Care Team Providers Care Interactive Media Marketing Director Name Role Phone SCOUT Aldana, HEATHER Unavailable Unavailable DIONICIO Orozco, SANDRO Unavailable Unavailable TAHIR CLARKE [place], JASPER HOLDER Unavailable Unavailable JACQUELINE MEDELLINP, SAMMY Unavailable Unavailable DIONICIO BETANCOURT, SANDRO Unavailable Unavailable TAHIR Aldana, JASPER Unavailable Unavailable DIRK CLARKE, NAFISA Manning Unavailable Unavailable SATURDAY , JUSTIN MARTIN Unavailable Unavailab jesús BUTTERFIELD MD [place], HEATHER Amaya Unavailable Unavailable Unavailable Unavailable Functional Status Name Dates Details Functional status health issues are not documented Status: Name Dates Details Cognitive status health issues are not d ocumented Status: Problems Name Dates Details Travelers' diarrhea (009.2, A09) Status: Active Flu vaccine need (V04.81, Z23) Status: Active 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, 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 Prostate cancer screening (V76.44, Z12.5 ) Status: Active Arthritis (716.90, M19.90) Status: Active Vitamin D deficiency disease (268.9, E55 .9) Status: Active Acute sinusitis (461.9, J01.90) Status: Active Acute bilateral low back pain with left- sided sciatica (724.2, M54.42) Status: Active Back pain (724.5, M54.9) Status: Active Leukopenia (288.50, D72.819) Status: Active Need for Tdap vaccination (V06.1, Z23) Status: Active Convulsion (780.39, R56.9) Status: Active Elevated liver enzymes (790.5, R74.8) Status: Active Metabolic encephalopathy (348.31, G93.41 ) Status: Active Insomnia, unspecified type (780.52, G47. 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 9, J06.9) Status: Active BMI 31.0-31.9,adult (V85.31, Z68.31) Status: Active Gastroenteritis (558.9, K52.9) Status: Active Common cold (460, J00) Status: Active Muscle strain of right lower extremity ( 844.9, S86.911A) Status: Active Recurrent Nonepileptic Seizures (780.39) Status: Active 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, intractable, without status epilepticus (345.41, G40.219) Status: Active Medications Name Dates Details Escitalopram Oxalate 10 MG Oral Tablet 1 tablet daily Quantity: 90 DIONICIO P.A., SANDRO * Start : 09-Jul-2014 Active levETIRAcetam ER 750 MG Oral Tablet Extended Release 24 Hour TAKE 2 TABLET DAILY * Quantity: 60 Refills: 11 HOPE M.D., OMOTOLA Active Zolpidem Tartrate 10 MG Oral Tablet TAKE 1 TABLET AT BEDTIME NEEDED FOR INSOMNIA. * Quantity: 30 Refills: 5 HOPE M.D., OMOTOLA Active Qudexy XR 200 [...] Intramuscula r Suspension Prefilled Syringe Lot #: [id number] on: 12-Aug-2017 Influenza, seasonal, injectable on: 04-Sep-2018 Tdap (Boostrix) Lot #: [id number] on: 10-Nov-2018 Fluzone Quadrivalent 0.5 ML Intramuscula r Suspension Lot #: [id number] on: 07-Sep-2019 Family History Name Dates Details [...] (finding) Vital Signs Date Test Result Details [id number] Physical Findings 1 Status: Comments: PH Q-9 Adult Depression Screening 58-Zsx-83702:58 Physical Findings 0 Status: Comments: Al cohol Screen - How many times in the past yr have you had 5 (for M) or 4 (for F) or 4 (for all > 65yrs) or more drinks in a day? Results Date Description Value Details Results not documented Plan of Care Name Dates Details Planned Observations Planned Goals not documented Planned Encounters Appointment; CAMILO RODNEY M.D. On: 22-Mar-2020 17:30 [...] not documented On: 18-Aug-2019 15:00 Appointment; SANDRO GREENBERG, PEdmundAEdmund Encounter Diagnosis: Problem not documented On: 07-Sep-2019 8:00 Appointment; HEATHER BUTTERFIELD M.D. Encounter Diagnosis: Problem not documented On: 30-Dec-2019 9:30 Appointment; SANDRO GREENBERG, PEdmundAEdmund Encounter Diagnosis: Problem not documented On: 17-Mar-2020 9:00
--- OUTSIDE RECORDS SUMMARY | 2020-06-03 20:25 | XMS REPORT | Summary of Care ---
Author HIEU Bergeron M.A. Organization Unknown Address [facility] Phone Unavailable Care Team Providers Care Tire Vulcanizer Name Role Phone SCOUT Aldana, HEATHER Unavailable Unavailable DIONICIO Orozco, SANDRO Unavailable Unavailable Khanh Barrera, Romana Unavailable Unavailable TAHIR CLARKE [place], JASPER HOLDER Unavailable Unavailable JACQUELINE MEDELLINP, SAMMY Unavailable Unavailable DIONICIO BETANCOURT, SANDRO Unavailable Unavailable Stu CLARKE, Ward Unavailable Unavailable TAHIR Aldana, JASPER Unavailable Unavailable DIRK CLARKE, NAFISA Manning Unavailable Unavailable SATURDAY , JUSTIN MARTIN Unavailable Unavailab jesús BUTTERFIELD MD [place], HEATHER Amaya Unavailable Unavailable Unavailable Unavailable Functional [...] INSOMNIA. * Quantity: 30 Refills: 5 HOPE M.DEdmund, OMOTOLA Active levETIRAcetam ER 750 MG [...] Intramuscula r Suspension Prefilled Syringe Lot #: [id number] on: 12-Aug-2017 Influenza, seasonal, injectable on: 04-Sep-2018 Tdap (Boostrix) Lot #: [id number] on: 10-Nov-2018 Fluzone Quadrivalent 0.5 ML Intramuscula r Suspension Lot #: [id number] on: 07-Sep-2019 Family History Name Dates Details [...] (finding) Vital Signs Date Test Result Details :41 Systolic blood pressure 127 mm[Hg] Status: Comments [...] Normal Body temperature 99.2 f Status: Comments: Me thod: Oral :21 Physical Findings 1 Status: Comments: PH Q-9 Adult Depression Screening :58 Physical Findings 0 Status: Comments: Al cohol [...]
--- OUTSIDE RECORDS SUMMARY | 2020-06-03 20:25 | XMS REPORT | Summary of Care ---
Author Author DIONICIO Orozco, HIEU BROCK Organization Unknown Address Unknown Phone Unavailable Care Team Providers Care Field Pipe Lines Supervisor Name Role Phone SCOUT Aldana, HEATHER Unavailable Unavailable DIONICIO Orozco, SANDRO Unavailable Unavailable TAHIR CLARKE [place], JASPER HOLDER Unavailable Unavailable JACQUELINE SORENSEN, SAMMY Unavailable Unavailable TAHIR Aldana, JASPER Unavailable Unavailable DIRK CLARKE, NAFISA Manning Unavailable Unavailable SATURDAY , JUSTIN MARTIN Unavailable Unavailab jesús BUTTERFIELD MD [place], HEATHER Amaya Unavailable Unavailable Unavailable Unavailable Functional [...] DAILY * Quantity: 60 Refills: 11 SCOUT M.Mayra, OMOTOLA Active Allergies and Adverse Reactions Name [...] Name Dates Details Fluzone INJ Comments: Approx [id number] Influenza on: 14-May-2015 Fluzone Quadrivalent 0.5 ML Intramuscula r Suspension Prefilled Syringe Lot #: [id number] on: 12-Aug-2017 Influenza, seasonal, injectable on: 04-Sep-2018 Tdap (Boostrix) Lot #: [id number] on: 10-Nov-2018 Fluzone Quadrivalent 0.5 ML Intramuscula r Suspension Lot #: [id number] on: 07-Sep-2019 Family History Name Dates Details [...] (finding) Vital Signs Date Test Result Details :21 Physical Findings 1 Status: Comments: PH Q-9 Adult Depression Screening 06-[id number]:58 Physical Findings 0 Status: Comments: Al cohol [...] Oxalate 10 MG Oral Tablet - Renew Labs/Procedures/Imaging* Tobacco Use Screening; Done: 17 Mar 2020 * Tobacco Use Screening; Done: 17 Mar 2020 Follow-ups/Referrals* Gastroenterology Referral; To Be Done: 17 Mar 2020 Plan* f/u in 6 months if no recent labs will need to go to labs next visit. * keep appt with Neurology. * Make appt for colonscopy. Instructions Name Dates Details Instructions not documented [...]
--- OUTSIDE RECORDS SUMMARY | 2020-06-03 20:25 | XMS REPORT | Summary of Care ---
Author Author HIEU COLEMAN APRN Organization Unknown Address Unknown Phone Unavailable Care Team Providers Care Wet Primer Powder Blender Name Role Phone SCOUT Aldana, HEATHER Unavailable Unavailable DIONICIO PSanty, SANDRO Unavailable Unavailable RONEL Aldana, CAMILO Unavailable Unavailable TAHIR CLARKE [place], JASPER HOLDER Unavailable Unavailable JACQUELINE MEDELLINP, SAMMY Unavailable Unavailable DIONICIO BETANCOURT, SANDRO Unavailable Unavailable TAHIR Aldana, JASPER Unavailable Unavailable DIRK CLARKE, NAFISA Manning Unavailable Unavailable SATURDAY , JUSTIN MARTIN Unavailable Unavailab jesús BUTTERFIELD MD [place], HEATHER A Unavailable Unavailable Unavailable Unavailable Functional Status [...] Colon cancer screening (V76.51, Z12.11) Status: Active Medications Name Dates Details Escitalopram [...] DAILY * Quantity: 60 Refills: 11 HOPE M.Mayra, OMOTOLA Active Allergies and Adverse Reactions [...] Intramuscula r Suspension Prefilled Syringe Lot #: [id number] on: 12-Aug-2017 Influenza, seasonal, injectable on: 04-Sep-2018 Tdap (Boostrix) Lot #: [id number] on: 10-Nov-2018 Fluzone Quadrivalent 0.5 ML Intramuscula r Suspension Lot #: [id number] on: 07-Sep-2019 Family History Name Dates Details [...] (finding) Vital Signs Date Test Result Details [id number] Physical Findings 1 Status: Comments: PH Q-9 Adult Depression Screening 10-Csv-49887:58 Physical Findings 0 Status: Comments: Al cohol [...] BUTTERFIELD M.D. On: 30-Aug-2020 9:30 Interventions Provided Plan* Plan Colonoscopy * RTC pending result Instructions Name Dates Details Instructions not documented [...] Problem not documented On: 17-Mar-2020 9:00 Appointment; CAMILO RODNEY M.D. Encounter Diagnosis: Problem not documented On: 22-Mar-2020 17:30
--- OUTSIDE RECORDS SUMMARY | 2020-06-03 20:25 | XMS REPORT | Summary of Care ---
Author HIEU Prescott M.A. Organization Unknown Address Unknown Phone Unavailable Care Team Providers Care Payroll Coordinator Name Role Phone SCOUT Aldana, HEATHER Unavailable Unavailable DIONICIO Orozco, SANDRO Unavailable Unavailable RONEL Aldana, WARD Unavailable Unavailable TAHIR CLARKE [place], JASPER HOLDER Unavailable Unavailable JACQUELINE MEDELLINP, SAMMY Unavailable Unavailable DIONICIO BETANCOURT, SANDRO Unavailable Unavailable Ronel CLARKE, Ward Unavailable Unavailable TAHIR Aldana, JASPER Unavailable Unavailable DIRK CLARKE, NAFISA Manning Unavailable Unavailable SATURDAY , JUSTIN MARTIN Unavailable Unavailab jesús BUTTERFIELD MD [place], OMOTOCRISTINA A Unavailable Unavailable Unavailable Unavailable Functional Status [...] 60 Refills: 11 HEATHER BUTTERFIELD M.D. Active Suprep Bowel Prep Kit 17.5-3.13-1.6 GM/177ML [...] Intramuscula r Suspension Prefilled Syringe Lot #: [id number] on: 12-Aug-2017 Influenza, seasonal, injectable on: 04-Sep-2018 Tdap (Boostrix) Lot #: [id number] on: 10-Nov-2018 Fluzone Quadrivalent 0.5 ML Intramuscula r Suspension Lot #: [id number] on: 07-Sep-2019 Family History Name Dates Details [...] (finding) Vital Signs Date Test Result Details [id number] Systolic blood pressure 127 mm[Hg] Status: Comments [...] 99.2 f Status: Comments: Me thod: Oral [id number] Physical Findings 1 Status: Comments: PH Q-9 Adult Depression Screening 76-Cbi-51054:58 Physical Findings 0 Status: Comments: Eleazar lima [...] On: 30-Aug-2020 9:30 Interventions Provided Medication Changes* Suprep Bowel Prep Kit 17.5-3.13-1.6 GM/177ML Oral Solution - Start Follow-ups/Referrals* Gastroenterology Referral; Done: 22 Mar 2020 Plan* Plan Colonoscopy * RTC pending result [...]
--- OUTSIDE RECORDS SUMMARY | 2020-06-03 20:25 | XMS REPORT | Summary of Care ---
Author HIEU Prescott M.A. Organization Unknown Address Unknown Phone Unavailable Care Team Providers Care Surface Mount Technology Operator Name Role Phone SCOUT Aldana, HEATHER Unavailable Unavailable DIONICIO Orozco, SANDRO Unavailable Unavailable RONEL Aldana, CAMILO Unavailable Unavailable TAHIR CLARKE [place], JASPER HOLDER Unavailable Unavailable JACQUELINE MEDELLINP, SAMMY Unavailable Unavailable DIONICIO BETANCOURT, SANDRO Unavailable Unavailable TAHIR Aldana, JASPER Unavailable Unavailable DIRK CLARKE, NAFISA Manning Unavailable Unavailable SATURDAY , JUSTIN MARTIN Unavailable Unavailab jesús BUTTERFIELD MD [place], OMOTOCRISTINA A Unavailable Unavailable Unavailable Unavailable Functional [...] Intramuscula r Suspension Prefilled Syringe Lot #: [id number] on: 12-Aug-2017 Influenza, seasonal, injectable on: 04-Sep-2018 Tdap (Boostrix) Lot #: [id number] on: 10-Nov-2018 Fluzone Quadrivalent 0.5 ML Intramuscula r Suspension Lot #: [id number] on: 07-Sep-2019 Family History Name Dates Details [...]
--- NOTE | 2020-07-27 14:02 | Emergency Department Note ---
History of Present Illnes History of Present Illness Chief Complaint: Back Pain History of Present Illness This is a 54 year old male patient fell complaining of back pain. Historian: Patient Arrival Mode: Car Onset (how long ago): day(s) (2) Location: back pain Quality: sharp Radiation: Denies non-radiation, Denies back, Denies neck, Denies extremity, Denies abdomen, Denies periumbilical, Denies flank, Denies proximal, Denies distal, Denies other Severity: moderate Onset quality: gradual Duration (how long): day(s) (2) Timing of current episode: constant Progression: unchanged Chronicity: new Context: Denies recent illness, Denies recent surgery, Denies recent immobilization, Denies recent travel, Denies trauma/injury, Denies new medications, Denies hx of DVT/PE, Denies non-compliance w/ medications, Denies other Relieving factors: rest Exacerbating factors: movement Associated symptoms: Denies denies other symptoms, Denies confusion, Denies chest pain, Denies cough, Denies diaphoresis, Denies fever/chills, Denies headaches, Denies loss of appetite, Denies malaise, Denies nausea/vomiting, Denies rash, Denies seizure, Denies shortness of breath, Denies syncope, Denies weakness, Denies other Treatments prior to arrival: none Past Medical/Family History Physician Review I have reviewed the patient's past medical and family history. Any updates have been documented here. Past Medical History Recent Fever: No Clinical Suspicion of Infectio: No New/Unexplained Change in Ment: No Past Medical History: Seizure Disorder, Anxiety, Depression, Chronic Back Pain Other Medical History: INSOMNIA Past Surgical History: Bariatric Surgery Social History Smoking Cessation: Never Smoker Counseling Performed: No Alcohol Use: None Any Illegal Drug Use: No Physically hurt or threatened: No Other Any Pre-Existing Lines (PICC,: No Review of Systems Review of Systems Constitutional: Reports no symptoms EENTM: Reports no symptoms Cardiovascular: Reports no symptoms Respiratory: Reports no symptoms Gastrointestinal: Reports no symptoms Genitourinary: Reports no symptoms Musculoskeletal: Reports as per HPI Integumentary: Reports no symptoms Neurological: Reports no symptoms Psychological: Reports no symptoms Endocrine: Reports no symptoms Hematological/Lymphatic: Reports no symptoms Physical Exam Related Data Allergies: Coded Allergies: No Known Allergies (Unverified , 06/01/20) Vital signs reviewed: Yes Physical Exam CONSTITUTIONAL Constitutional: Present well-developed, Present well-nourished HENT HENT: Present normocephalic, Present atraumatic, Present oropharynx codi ar/moist, Present nose normal HENT L/R: Present left ext ear normal, Present right ext ear normal EYES Eyes: Reports PERRL, Reports conjunctivae normal NECK Neck: Present ROM normal PULMONARY Pulmonary: Present effort normal, Present breath sounds normal CARDIOVASCULAR Cardiovascular: Present regular rhythm, Present heart sounds normal, Present capillary refill normal, Present normal rate GASTROINTESTINAL Abdominal: Present soft, Present nontender, Present bowel sounds normal GENITOURINARY Genitourinary: Present exam deferred SKIN Skin: Present warm, Present dry MUSCULOSKELETAL Musculoskeletal: Present tenderness (back) NEUROLOGICAL Neurological: Present alert, Present oriented x 3, Present no gross motor or sensory deficits PSYCHOLOGICAL Psychological: Present mood/affect normal, Present judgement normal Results Imaging Imaging results reviewed: Yes Assessment & Plan Medical Decision Making MDM fx vs sprain Reassessment Reassessment better Assessment & Plan Final Impression: (1) Acute pain due to trauma (2) Back pain Depart Disposition: HOME, SELF-CARE JANET MANN MD Jul 27, 2020 14:02
== END 2020-06-01 19:20 | disposition home or self-care (01) ==
LOC: FSED 17:57
DX: M54.5 Low back pain (principal); G89.29 Other chronic pain; G40.909 Epilepsy, unspecified, not intractable, without status epilepticus; F41.9 Anxiety disorder, unspecified
CPT/HCPCS: 72110; 72170; 72220; 99283; J1885

== ENCOUNTER 2020-11-24 18:00 | Emergency (ER) | payer OTHER ==
[~2020-11-24] VITALS: Ht 193 cm; Wt 113.5 kg
[2020-11-24] MEDS ORDERED: ONDANSETRON HCL 4 MG ORAL DISINTEGRATING TAB PO STA (18:22)
[2020-11-24] MEDS ORDERED: KETOROLAC TROMETHAMINE 60 MG/2 ML VIAL IM ONE (18:30)
[2020-11-24] MEDS ORDERED: ZOFRAN4 MG PO (19:44)
[2020-11-24] MEDS ORDERED: MOTRIN200 MG PO (19:44)
[2020-11-24] MEDS ORDERED: FLOMAX0.4 MG PO (19:44)
== END 2020-11-24 20:20 | disposition home or self-care (01) ==
LOC: FSED 18:20
DX: N20.0 Calculus of kidney (principal); R11.2 Nausea with vomiting, unspecified; G40.909 Epilepsy, unspecified, not intractable, without status epilepticus; G47.00 Insomnia, unspecified
CPT/HCPCS: 74176; 81003; 96372; 99283; J1885; Q0162

== ENCOUNTER 2022-04-23 13:14 | Emergency (ER) | payer OTHER ==
[~2022-04-23] VITALS: Ht 193 cm; Wt 112.5 kg
[~2022-04-23 13:14] MED LIST: FLOMAX0.4 MG PO; MOTRIN200 MG PO; ZOFRAN4 MG PO
[2022-04-23] MEDS ORDERED: Morphine 2mg Syringe 2 MG/ML SYR IV ONE (14:15)
[2022-04-23] MEDS ORDERED: HYDROCODONE/APAP 5MG-325MG TAB PO ONE (14:15)
[2022-04-23] MEDS ORDERED: HYDROCODONE/APAP 5MG-325MG TAB ONE (14:37)
[2022-04-23] MEDS ORDERED: ULTRAM50 MG PO (14:46)
== END 2022-04-23 14:50 | disposition home or self-care (01) ==
LOC: FSED 14:12
DX: M25.512 Pain in left shoulder (principal); G40.909 Epilepsy, unspecified, not intractable, without status epilepticus; Z98.84 Bariatric surgery status
CPT/HCPCS: 99282; J2270